=== PATIENT | female | born 1990 | race Caucasian/White ===

== ENCOUNTER 2018-08-18 16:29 | Inpatient (IN) ==
[2018-08-18] MEDS ORDERED: ACETAMINOPHEN 1,000 MG/100 ML VIAL IV STA (17:29)
[2018-08-18] MEDS ORDERED: KETOROLAC TROMETHAMINE 15 MG/ML VIAL IV STA (17:29)
[2018-08-18] MEDS ORDERED: SODIUM CHLORIDE 0.9% 1000ML 2,000 ML IV ONE (17:29)
[2018-08-18] MEDS ORDERED: ONDANSETRON INJ 2 MG/ML 2 ML VIAL IV STA (17:30)
[2018-08-18 19:31] LABS: Pregnancy Test, Serum Negative (Negative)
[2018-08-18 19:39] LABS: Albumin Globulin Ratio 0.8 (0.9-2); Albumin Level 2.8 gm/dl (3.4-5.0); BUN Creatinine Ratio 6.9 (10-20); Bilirubin Direct 0.5 mg/dl (0-0.2); Bilirubin,Total 1.1 mg/dl (0.2-1); Calcium 7.4 mg/dl (8.5-10.1); Creatinine Clr Calc Pharmacy 113.4 ml/min; Est GFR (African American) 123.7; Est GFR (Non-African American) 106.8; Globulin 3.3 gm/dl (2.5-4.0); Potassium 2.5 mmol/L (3.5-5.1); Total Protein 6.1 gm/dl (6.4-8.2)
[2018-08-18] MEDS ORDERED: POTASSIUM CHLORIDE / WTR 10 MEQ/100 ML PLCT IV STA (19:41)
[2018-08-18 20:26] LABS: Basophils # (auto) 0.01 K/uL (0-0.2); Basophils % (auto) 0.1 %; Hematocrit (blood only) 35.7 % (37-47); Hemoglobin 12.1 g/dL (12.0-16.0); Immature Granulocytes # (auto) 0.02 K/uL (0.00-0.02); Immature Granulocytes % (auto) 0.2 %; Lymphocytes # (auto) 0.89 K/uL (1.2-3.4); Lymphocytes % (auto) 9.6 %; Mean Corpuscular Hgb Conc 33.9 g/dL (32-36); Mean Corpuscular Volume 85.6 fL (80-100); Mean Platelet Volume 11.4 fL (7.4-10.4); Monocytes % (auto) 4.3 %; Neutrophils # (auto) 7.98 K/uL (1.4-6.5); Neutrophils % (auto) 85.8 %; Platelet Count 98 K/uL (130-400); Platelet Estimate Decreased (Normal); RDW Coefficient of Variation 13.3 % (11.5-14.5); RDW Standard Deviation 41.6 fL (36.4-46.3); Red Blood Count 4.17 M/uL (4.2-5.4)
[2018-08-18] MEDS ORDERED: IOVERSOL 100ml IV PRN (20:27)
--- NOTE | 2018-08-18 20:39 | CT Scan Report ---
CT abd pelvis IV con only CLINICAL HISTORY: 28 years-old Female presenting with rlq pain, fevers, nausea. TECHNIQUE: Multidetector CT of the abdomen and pelvis was performed after the administration of intra venous contrast. IV contrast: 94 mL of Optiray 320. One or more dose lowering techniques were used co nsistent with the principles of ALARA (as low as reasonably achievable), including automatic exposure control, mA or kV adjustment to individual patient size, and/or use of iterative reconstruction. COMPARISON: None. CT DOSE (mGy.cm): The estimated cumulative dose is 465.68 mGy.cm. FINDINGS: Glaze Carrier topogram: Cholecystectomy clips. Lung bases: Normal heart size. No pericardial or pleural effusion. No focal infiltrate or nodule at t he lung bases. Liver: Normal morphology. No liver lesion. Patent hepatic vasculature. Biliary: Mild biliary ductal prominence likely a reservoir effect in the post cholecystectomy state. Gallbladder surgically absent. Pancreas: Normal. Spleen: Top normal in size measuring 13 cm in maximal sagittal dimension. Adrenal glands: Normal. Kidneys and ureters: Mild delayed perfusion of the right kidney. A limited region of hypoenhancement is noted along the anterior aspect of the interpolar region. Significant right urothelial thickening. No hydronephrosis. Extensive right periureteral fat stranding. No nephrolithiasis or ureteral calcul us. Moderate asymmetric right perinephric fat infiltration as well as trace fluid in the right anteri or pararenal space. No renal abscess. Bladder: Circumferential bladder wall thickening. Focus of gas in the urinary bladder may relate to r ecent catheterization. Pelvic organs: Uterus and ovaries normal. A tampon is in place within the vagina. Bowel: Normal appendix. No bowel obstruction. Peritoneal cavity: No free fluid or intraperitoneal gas. Trace retroperitoneal fluid as mentioned. Lymph nodes: No enlarged lymph nodes in the abdomen or pelvis. Vasculature: Aorta and IVC patent and normal in caliber. Abdominal wall: Small fat-containing umbilical hernia. Musculoskeletal: Normal. IMPRESSION: 1. Cystitis with upper urinary tract involvement of infection and suspected developing lobar nephron ia/focal polynephritis. No hydronephrosis. No renal abscess. 2. No nephrolithiasis or evidence of a recently passed calculus. 3. Borderline splenomegaly. Electronically signed by: Mustapha Mann M.D. 08/18/2018 8:38 PM
[2018-08-18] MEDS ORDERED: cefTRIAXone SODIUM 2,000 MG in DEXTROSE 5% 50 ML IV STA (20:42)
[2018-08-18] MEDS ORDERED: SODIUM CHLORIDE 0.9% 1000ML 1,000 ML IV ONE (20:42)
[2018-08-18] MEDS ORDERED: MAGNESIUM SULFATE / D5W 1 GM/100 ML BAG IV ONE ×2 (20:44→23:37)
[2018-08-18] MEDS ORDERED: POTASSIUM CHLORIDE PWD 20 MEQ PACK PO STA (20:55)
--- NOTE | 2018-08-18 21:01 | Emergency Department Note ---
Entered by Lilia Ayala acting as a scribe for Alton Feliz MD History of Present Illness General Chief complaint: Illness Stated complaint: DIZZY, HEADACHE, FEVER, PAIN ON RT SIDE Time Seen by Provider: 08/18/18 17:06 Source: patient Mode of arrival: ambulatory Limitations: no limitations History of Present Illness Onset (ago): day(s) 3 Radiation: non-radiation Pain Consistency: + constant Maximum Pain Intensity: 8 Relieved By: + none Exacerbated By: + none Associated symptoms: + nausea/vomiting and + other (-diarrhea, +right sided flan k pain) Treatments prior to arrival: none The patient is a 28 year old female who presents to the ED with complaints of a persistent illness for the past few days. She states she feels weak, dizzy, lightheaded, and nauseous. She has vomited a few times and states she has not eaten in 3 to 4 days. She has experienced a headache as well as pain in her right flank. She states she has a history of urinary infections, and last had an infection about 1 month ago. She denies any diarrhea or urinary symptoms. She is a 1 pack a day smoker. She denies any alcohol use. She still has her appendix but has had her gallbladder removed. 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 Other Information That Helps Us Care for You: No Feels Safe at Home: Yes Safety Concerns: Feels Safe At This Time Smoking Status: Current every day smoker Tobacco Type: cigarettes Hx Alcohol Use: No Hx Substance Use: No Review of Systems See HPI for pertinent positives & negatives. and A total of 10 systems reviewed and were otherwise negative Physical Exam Vital Signs Vital Signs - 24 hr 08/18/18 16:39 08/18/18 18:06 08/18/18 18:46 Temperature 37.6 C H Temperature Source Oral Sepsis Recent Fever Within 48 Hours Yes Sepsis New/Unexplained Change in Mental Status No Sepsis Action Taken by Nursing No Action Required Pulse Rate 138 H 114 H Pulse Rate [Apical] 114 H 114 H Pulse Rate from SpO2 Sensor Pulse Rhythm Regular Pulse Rhythm [Apical] Regular Regular Pulse Strength [Apical] Normal Normal Respiratory Rate 18 18 18 Respiratory Effort / Characteristics Non-Labored Non-Labored Spontaneous Non-Labored Spontaneous Respiratory Depth Normal Normal Normal Respiratory Pattern Regular Regular Blood Pressure 122/81 Blood Pressure [Left Arm] 108/79 131/58 L Blood Pressure Mean 94 Blood Pressure Mean [Left Arm] 88 82 Blood Pressure Position [Left Arm] Lying Lying Pulse Oximetry 98 100 97 Oxygen Delivery Method Room Air Room Air Room Air 08/18/18 20:35 08/18/18 20:36 08/18/18 20:47 Temperature Temperature Source Sepsis Recent Fever Within 48 Hours Sepsis New/Unexplained Change in Mental Status Sepsis Action Taken by Nursing Pulse Rate 94 H 99 H 99 H Pulse Rate [Apical] Pulse Rate from SpO2 Sensor 99 H 101 H 99 H Pulse Rhythm Pulse Rhythm [Apical] Pulse Strength [Apical] Respiratory Rate 19 24 27 H Respiratory Effort / Characteristics Respiratory Depth Respiratory Pattern Blood Pressure 87/79 L 77/69 L 109/65 Blood Pressure [Left Arm] Blood Pressure Mean 81 71 79 Blood Pressure Mean [Left Arm] Blood Pressure Position [Left Arm] Pulse Oximetry 100 100 99 Oxygen Delivery Method Room Air Room Air Room Air 08/18/18 21:00 08/18/18 21:30 Temperature Temperature Source Sepsis Recent Fever Within 48 Hours Sepsis New/Unexplained Change in Mental Status Sepsis Action Taken by Nursing Pulse Rate 93 H 93 H Pulse Rate [Apical] Pulse Rate from SpO2 Sensor 95 H 97 H Pulse Rhythm Pulse Rhythm [Apical] Pulse Strength [Apical] Respiratory Rate 20 21 Respiratory Effort / Characteristics Respiratory Depth Respiratory Pattern Blood Pressure 115/75 110/71 Blood Pressure [Left Arm] Blood Pressure Mean 88 84 Blood Pressure Mean [Left Arm] Blood Pressure Position [Left Arm] Pulse Oximetry 100 100 Oxygen Delivery Method Room Air Room Air GENERAL: Awake, alert, fatigued-appearing, and appears uncomfortable HENT: Normocephalic, atraumatic. Oropharynx with dry mucous membranes and otherwise unremarkable. EYES: Normal conjunctiva. Sclera non-icteric. NECK: Supple. No nuchal rigidity. FROM. No JVD. RESPIRATORY: CTAB. CARDIAC: Tachycardic rate, normal rhythm. Extremities warm and well perfused. Pulses equal. ABDOMEN: Soft, non-distended. Mild RLQ abdominal tenderness to palpation and right flank tenderness. No rebound or guarding. No masses. RECTAL: Deferred. MUSCULOSKELETAL: Chest examination reveals no tenderness. The back is symmetrical on inspection without obvious abnormality. There is no CVA tenderness to palpation. No joint edema. LOWER EXTREMITIES: Calves are equal size bilaterally and non-tender. No edema. No discoloration. NEURO: Normal sensorium. No sensory or motor deficits noted. SKIN: No rash or jaundice noted. Course 1728: The patient was evaluated in room C2 and a complete history and physical were performed. Administered Medications Lactated Ringer's (Lr) 1,000 mls @ 80 mls/hr IV .[id number] MYLES Stop: 09/17/18 23:36 Last Admin: 08/19/18 00:16 Dose: 80 mls/hr Documented by: [id number] Potassium Chloride (K Carroll / Wtr) 10 meq in 100 mls @ 100 mls/hr IV Q1H MYLES Stop: 08/19/18 03:36 Last Infusion: 08/19/18 00:32 Dose: 67 mls/hr Documented by: [id number] Admin: 08/19/18 00:18 Dose: 75 mls/hr Documented by: [id number] Ioversol (Optiray 320 100ml) 94 ml IV ONCE PRN PRN Reason: Interaction Checking Stop: 08/22/18 20:26 Last Admin: 08/18/18 20:28 Dose: 94 ml Documented by: [id number] Morphine Sulfate (Morphine Sulfate) 2 mg IV Q4H PRN PRN Reason: Severe Pain Stop: 09/01/18 22:43 Last Admin: 08/18/18 22:54 Dose: 2 mg Documented by: [id number] Discontinued Medications Acetaminophen (Ofirmev) 1,000 mg in 100 mls @ 400 mls/hr IV NOW STA Stop: 08/18/18 17:43 Last Infusion: 08/18/18 18:13 Dose: 0 mls/hr Documented by: [id number] Admin: 08/18/18 17:56 Dose: 400 mls/hr Documented by: [id number] Sodium Chloride (Nss 1000ml) 2,000 mls @ 999 mls/hr IV .Q2H1M ONE Stop: 08/18/18 19:29 Last Infusion: 08/18/18 20:46 Dose: 0 mls/hr Documented by: [id number] Admin: 08/18/18 17:55 Dose: 999 mls/hr Documented by: [id number] Potassium Chloride (K Carroll / Wtr) 10 meq in 100 mls @ 100 mls/hr IV NOW STA Stop: 08/18/18 20:40 Last Infusion: 08/18/18 21:42 Dose: 0 mls/hr Documented by: [id number] Admin: 08/18/18 20:14 Dose: 100 mls/hr Documented by: [id number] Ceftriaxone Sodium 2,000 mg/ (Dextrose) 70 mls @ 100 mls/hr IV NOW STA Stop: 08/18/18 21:23 Last Infusion: 08/18/18 23:04 Dose: 0 mls/hr Documented by: [id number] Admin: 08/18/18 22:03 Dose: 100 mls/hr Documented by: [id number] Sodium Chloride (Nss 1000ml) 1,000 mls @ 999 mls/hr IV .Q1H1M ONE Stop: 08/18/18 21:42 Last Infusion: 08/18/18 22:30 Dose: 0 mls/hr Documented by: [id number] Admin: 08/18/18 21:22 Dose: 999 mls/hr Documented by: [id number] Magnesium Sulfate/Dextrose (Magnesium Sulfate / D5w) 1 gm in 100 mls @ 100 mls/hr IV ONE ONE Stop: 08/18/18 21:43 Last Infusion: 08/18/18 22:03 Dose: 0 mls/hr Documented by: [id number] Admin: 08/18/18 20:59 Dose: 100 mls/hr Documented by: [id number] Lactated Ringer's (Lr) 1,000 mls @ 999 mls/hr IV .Q1H1M ONE Stop: 08/18/18 23:38 Last Infusion: 08/19/18 00:06 Dose: 0 mls/hr Documented by: [id number] Admin: 08/18/18 23:04 Dose: 999 mls/hr Documented by: [id number] Magnesium Sulfate/Dextrose (Magnesium Sulfate / D5w) 1 gm in 100 mls @ 100 m ls/hr IV ONE ONE Stop: 08/19/18 00:36 Last Admin: 08/19/18 00:23 Dose: 100 mls/hr Documented by: [id number] Ketorolac Tromethamine (Toradol) 15 mg IV NOW STA Stop: 08/18/18 17:30 Last Admin: 08/18/18 17:56 Dose: 15 mg Documented by: [id number] Ondansetron HCl (Zofran) 4 mg IV NOW STA Stop: 08/18/18 17:31 Last Admin: 08/18/18 17:56 Dose: 4 mg Documented by: [id number] Potassium Chloride (Klor-Con Pwd) 40 meq PO NOW STA Stop: 08/18/18 20:56 Last Admin: 08/18/18 21:21 Dose: 40 meq Documented by: [id number] Medical Decision Making Differential Diagnosis Differential diagnoses includes but is not limited to gastritis, peptic ulcer disease, GERD, gallbladder disease, pancreatitis, small bowel obstruction, acute coronary syndrome, pericarditis, ischemic bowel, irritable bowel disease, irritable bowel syndrome, appendicitis, diverticulitis, malignancy, hernia, urinary tract infection, torsion, /ectopic , perforation, trauma, infectious. Medical Records Attestation: I reviewed the patient's medical records. Home Medications Current Medication List: was personally reviewed by me Laboratory Data Attestation: I reviewed the patient's lab results. Result diagrams: 08/18/18 18:54 08/18/18 18:54 Lab Results 08/18/18 08/18/18 08/18/18 Range/Units 18:54 18:54 18:54 WBC 9.30 (4.8-10.8) K/uL RBC 4.17 L (4.2-5.4) M/uL Hgb 12.1 (12.0-16.0) g/dL Hct 35.7 L (37-47) % MCV 85.6 (80-100) fL MCH 29.0 (25-34) pg MCHC 33.9 (32-36) g/dL RDW Std Deviation 41.6 (36.4-46.3) fL RDW Coeff of Jose 13.3 (11.5-14.5) % Plt Count 98 L (130-400) K/uL MPV 11.4 H (7.4-10.4) fL Immature Gran % (Auto) 0.2 % Neut % (Auto) 85.8 % Lymph % (Auto) 9.6 % [place] % (Auto) 4.3 % Eos % (Auto) 0.0 % Baso % (Auto) 0.1 % Immature Gran # (Auto) 0.02 (0.00-0.02) K/uL Neut # (Auto) 7.98 H (1.4-6.5) K/uL Lymph # (Auto) 0.89 L (1.2-3.4) K/uL [place] # (Auto) 0.40 (0.11-0.59) K/uL Eos # (Auto) 0.00 (0-0.5) K/uL Baso # (Auto) 0.01 (0-0.2) K/uL Platelet Estimate Decreased L (Normal) Sodium 136 (136-145) mmol/L Potassium 2.5 L* (3.5-5.1) mmol/L Chloride 103 (98-107) mmol/L Carbon Dioxide 22 (21-32) mmol/L Anion Gap 9.0 (3-11) BUN 5 L (7-18) mg/dl Creatinine 0.76 (0.6-1.2) mg/dl Est Cr Clr Drug Dosing 113.4 ml/min Est GFR ( Amer) 123.7 Est GFR (Non-Af Amer) 106.8 BUN/Creatinine Ratio 6.9 L (10-20) Glucose 111 H (70-99) mg/dl Calcium 7.4 L (8.5-10.1) mg/dl Phosphorus (2.5-4.9) mg/dl Magnesium (1.8-2.4) mg/dl Total Bilirubin 1.1 H (0.2-1) mg/dl Direct Bilirubin 0.5 H (0-0.2) mg/dl AST 9 L (15-37) U/L ALT 15 (12-78) U/L Alkaline Phosphatase 76 (45-117) U/L Total Protein 6.1 L (6.4-8.2) gm/dl Albumin 2.8 L (3.4-5.0) gm/dl Globulin 3.3 (2.5-4.0) gm/dl Albumin/Globulin Ratio 0.8 L (0.9-2) Lipase 24 L (73-393) U/L HCG, Qual Negative (Negative) 08/18/18 Range/Units 18:54 WBC (4.8-10.8) K/uL RBC (4.2-5.4) M/uL Hgb (12.0-16.0) g/dL Hct (37-47) % MCV (80-100) fL MCH (25-34) pg MCHC (32-36) g/dL RDW Std Deviation (36.4-46.3) fL RDW Coeff of Jose (11.5-14.5) % Plt Count (130-400) K/uL MPV (7.4-10.4) fL Immature Gran % (Auto) % Neut % (Auto) % Lymph % (Auto) % [place] % (Auto) % Eos % (Auto) % Baso % (Auto) % Immature Gran # (Auto) (0.00-0.02) K/uL Neut # (Auto) (1.4-6.5) K/uL Lymph # (Auto) (1.2-3.4) K/uL [place] # (Auto) (0.11-0.59) K/uL Eos # (Auto) (0-0.5) K/uL Baso # (Auto) (0-0.2) K/uL Platelet Estimate (Normal) Sodium (136-145) mmol/L Potassium (3.5-5.1) mmol/L Chloride (98-107) mmol/L Carbon Dioxide (21-32) mmol/L Anion Gap (3-11) BUN (7-18) mg/dl Creatinine (0.6-1.2) mg/dl Est Cr Clr Drug Dosing ml/min Est GFR ( Amer) Est GFR (Non-Af Amer) BUN/Creatinine Ratio (10-20) Glucose (70-99) mg/dl Calcium (8.5-10.1) mg/dl Phosphorus 2.3 L (2.5-4.9) mg/dl Magnesium 1.6 L (1.8-2.4) mg/dl Total Bilirubin (0.2-1) mg/dl Direct Bilirubin (0-0.2) mg/dl AST (15-37) U/L ALT (12-78) U/L Alkaline Phosphatase (45-117) U/L Total Protein (6.4-8.2) gm/dl Albumin (3.4-5.0) gm/dl Globulin (2.5-4.0) gm/dl Albumin/Globulin Ratio (0.9-2) Lipase (73-393) U/L HCG, Qual (Negative) Imaging Data Attestation: I personally reviewed and interpreted this imaging study as follows: Radiologist's Impression: CT abd pelvis IV con only CLINICAL HISTORY: 28 years-old Female presenting with rlq pain, fevers, nausea. TECHNIQUE: Multidetector CT of the abdomen and pelvis was performed after the administration of intravenous contrast. IV contrast: 94 mL of Optiray 320. One or more dose lowering techniques were used consistent with the principles of ALARA (as low as reasonably achievable), including automatic exposure control, mA or kV adjustment to individual patient size, and/or use of iterative reconstruction. COMPARISON: None. CT DOSE (mGy.cm): The estimated cumulative dose is 465.68 mGy.cm. FINDINGS: Target Man topogram: Cholecystectomy clips. Lung bases: Normal heart size. No pericardial or pleural effusion. No focal infiltrate or nodule at the lung bases. Liver: Normal morphology. No liver lesion. Patent hepatic vasculature. Biliary: Mild biliary ductal prominence likely a reservoir effect in the post cholecystectomy state. Gallbladder surgically absent. Pancreas: Normal. Spleen: Top normal in size measuring 13 cm in maximal sagittal dimension. Adrenal glands: Normal. Kidneys and ureters: Mild delayed perfusion of the right kidney. A limited region of hypoenhancement is noted along the anterior aspect of the interpolar region. Significant right urothelial thickening. No hydronephrosis. Extensive right periureteral fat stranding. No nephrolithiasis or ureteral calculus. Moderate asymmetric right perinephric fat infiltration as well as trace fluid in the right anterior pararenal space. No renal abscess. Bladder: Circumferential bladder wall thickening. Focus of gas in the urinary bladder may relate to recent catheterization. Pelvic organs: Uterus and ovaries normal. A tampon is in place within the vagina. Bowel: Normal appendix. No bowel obstruction. Peritoneal cavity: No free fluid or intraperitoneal gas. Trace retroperitoneal fluid as mentioned. Lymph nodes: No enlarged lymph nodes in the abdomen or pelvis. Vasculature: Aorta and IVC patent and normal in caliber. Abdominal wall: Small fat-containing umbilical hernia. Musculoskeletal: Normal. IMPRESSION: 1. Cystitis with upper urinary tract involvement of infection and suspected developing lobar nephronia/focal polynephritis. No hydronephrosis. No renal abscess. 2. No nephrolithiasis or evidence of a recently passed calculus. 3. Borderline splenomegaly. Electronically signed by: Mustapha Mann M.D. 08/18/2018 8:38 PM Dictated: 08/18/182030 Transcribed: 08/18/182030 MDM Narrative The patient is a pleasant 28-year-old woman with a past medical history of recurrent urinary tract infections who presents emergency department with generalized weakness, body aches and feverishness over the past 48 hours with associated right flank and right lower abdominal pain per hpi. On arrival patient is fatigued appearing no acute distress, temperature of 37.6 with heart rate in the 130s but vital signs otherwise stable. Patient appears clinically dry. She has mild right flank and right lower quadrant tenderness without guarding or rebound. WBC and hemoglobin within normal limits. Platelets 98 without prior for comparison. Potassium 2.5 with repletion initiated. Mg 1.6 with repletion initiated. Chemistry without acidosis. LFTs unremarkable. CT abdomen pelvis demonstrates findings consistent with pyelonephritis without abscess. Of note, patient's blood pressure did read as low 77/69 but when reevaluated cuff was noted to be loose and when reapplied blood pressure 100s/80s. Findings were reviewed with the patient and she admitted to having a habit of not taking medications that are prescribed for her and in particular her antibiotics which certainly could have put her at risk for development of her pyelonephritis diagnosed today. Patient ordered for CTX. Case d/w Dr. Veloz, admitting resident working with Dr. Carter, [facility] hospitalist, who will evaluate the patient for admission. Impression & Plan Pyelonephritis of right kidney, Hypokalemia, Hypomagnesemia Discharge Plan Visit Data *Final* Discharge Date/Time: 08/18/18 23:12 Chief Complaint: Illness Stated Complaint: DIZZY, HEADACHE, FEVER, PAIN ON RT SIDE ED Provider: Alton Feliz Discharge Problem: Pyelonephritis of right kidney, Hypokalemia, Hypomagnesemia Patient Disposition: Admitted As Inpatient Discharge Instructions Interventions: ED Discharge Assessment Last Done: 08/18/18 23:12 The scribe's documentation has been prepared under my direction and personally reviewed by me in its entirety. I confirm that the note above accurately reflects all work, treatment, procedures, and medical decision making performed by me.
[2018-08-18 22:05] LABS: Magnesium 1.6 mg/dl (1.8-2.4); Phosphorus 2.3 mg/dl (2.5-4.9)
--- NOTE | 2018-08-18 22:11 | History & Physical Report ---
Date of Service August 18, 2018 Assessment & Plan (1) Nausea and vomitin-year-old female was admitted for nausea, vomiting, hypokalemia, and pyelonephritis. Nausea and vomiting, right pyelonephritis: N/V x 3 days, flank pain x ~48 hours. Tm 101 at home. History of UTI and noncompliance with taking antibiotics. - In ED, temp 37.6. Initially tachycardic, improved with fluids. Question of transient hypotension versus BP cuff misplacement. Normal room SpO2. WBC 9. hCG negative. CT a/p with IV contrast with concerns for developing right pyelonephritis without hydronephrosis or abscess. No nephrolithiasis seen. - In ED, treated with normal saline IVF, Tylenol, Toradol, Zofran, and started on ceftriaxone 2 gm IV. UA and culture ordered, though does not seem to have been obtained prior to antibiotic administration. - Will continue with ceftriaxone 1 gram IV every 24 hours. Tylenol and Zofran for pain and nausea respectively. Keep on IVF for now. Hypokalemia, Hypomagnesemia: Admit K 2.5. EKG notes NSR 82 without U waves. Admit Mg 1.6. - In ED, given potassium 60 mEq and magnesium 1 gram in ED. - Will give additional doses of potassium and magnesium IV. Recheck in a.m. Thrombocytopenia: Admit platelets 98. No comparison available. CT a/p mentions borderline splenomegaly. Patient denies left upper quadrant/flank pain. No reports of recent easy bleeding. - Recheck CBC in a.m. Hypoalbuminemia: Admit albumin 2.8. Calcium corrects to 8.5. Ongoing medical issues: Patient denies ongoing issues with exception of recurrent UTIs. Code status: Full code. Diet: Full liquid diet, advance as tolerated. DVT prophy: Lovenox. PT/OT: Deferred. Disbo: Admit to [facility] with telemetry for observation. (2) Pyelonephritis of right kidney: (3) Hypokalemia: (4) Hypomagnesemia: (5) Thrombocytopenia: (6) Hypoalbuminemia: History of Present Illness Primary Care Provider: NO PCP 28-year-old female presents to the emergency department nausea vomiting for 3 to 4 days as well as right flank pain for about 2 days. Patient says she has a history of recurrent UTIs "about one per month. However, patient says that she will often fill the antibiotics but not complete intercourse due to either not remembering her or being too busy with her 3 kids. Minimal food intake during these past few days but has tried to stay dehydrated. Denies diarrhea. Says joan garcia was 101 earlier today but took some Tylenol. Denies bloody emesis. Says she presently has right flank pain without radiation. No other acute patient concerns. - Past medical history includes recurrent UTIs, iron deficiency anemia in . - Past surgical history includes cholecystectomy, x3, tubal ligation. - Social history includes smoking 1 pack/day for 15 years. Denies alcohol and illicit drug use. Lives with boyfriend and three children with family nearby. 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 Other Information That Helps Us Care for You: No Feels Safe at Home: Yes Safety Concerns: Feels Safe At This Time Smoking Status: Current every day smoker Tobacco Type: cigarettes Hx Alcohol Use: No Hx Substance Use: No Review of Systems Review of Systems: Constitutional: Positive fevers. Denies focal weakness. Eyes: Denies any visual loss or diplopia ENT: Denies any ear/nose/throat pain or difficulty speaking or swallowing Respiratory: Denies any dyspnea, cough, hemoptysis Cardiovascular: Denies any chest pain or feeling of edema Gastrointestinal/renal: Positive right flank pain. Positive nausea and vomiting. Denies diarrhea. Musculoskeletal: Denies any acute extremity pains, myalgias, or focal weakness Skin: Denies any known acute rashes or lesions Neuro: Positive generalized headache. Denies acute focal weakness or numbness, or difficulties with speech or swallow. Physical Exam Physical Exam: GENERAL: Awake, alert, appears a little uncomfortable due to right flank pain, but does not appear in acute distress. HENT: Normocephalic, atraumatic. Oropharynx mildly dry. EYES: Normal conjunctiva. Sclera non-icteric. NECK: Inspection normal. Supple and full ROM. No nuchal rigidity. CARDIAC: +S1S2 RRR, no murmurs. RESPIRATORY: Clear to auscultation. No wheezes or rales. Normal respiratory effort. GI: +BS, soft, non-distended. No tenderness to palpation anteriorly. No rebound or guarding. Positive right flank CVA tenderness to palpation. EXTREMITIES: No pedal edema or calf tenderness. Moving all extremities naturally and easily. NEURO: No gross neuro deficits. Results & Data Vital Signs (Past 12 Hours) Vital Signs Temp Pulse Pulse Resp BP BP Pulse Ox 08/18/18 21:00 93 H 20 115/75 100 08/18/18 20:47 99 H 27 H 109/65 99 08/18/18 20:36 99 H 24 77/69 L 100 08/18/18 20:35 94 H 19 87/79 L 100 08/18/18 18:46 114 H 18 131/58 L 97 08/18/18 18:06 114 H 114 H 18 108/79 100 08/18/18 16:39 37.6 C H 138 H 18 122/81 98 Laboratory Results 08/18/18 08/18/18 08/18/18 Range/Units 18:54 18:54 18:54 WBC (4.8-10.8) K/uL RBC (4.2-5.4) M/uL Hgb (12.0-16.0) g/dL Hct (37-47) % MCV (80-100) fL MCH (25-34) pg MCHC (32-36) g/dL RDW Std Deviation (36.4-46.3) fL RDW Coeff of Jose (11.5-14.5) % Plt Count (130-400) K/uL MPV (7.4-10.4) fL Immature Gran % (Auto) % Neut % (Auto) % Lymph % (Auto) % Taney % (Auto) % Eos % (Auto) % Baso % (Auto) % Immature Gran # (Auto) (0.00-0.02) K/uL Neut # (Auto) (1.4-6.5) K/uL Lymph # (Auto) (1.2-3.4) K/uL Taney # (Auto) (0.11-0.59) K/uL Eos # (Auto) (0-0.5) K/uL Baso # (Auto) (0-0.2) K/uL Platelet Estimate (Normal) Sodium 136 (136-145) mmol/L Potassium 2.5 L* (3.5-5.1) mmol/L Chloride 103 (98-107) mmol/L Carbon Dioxide 22 (21-32) mmol/L Anion Gap 9.0 (3-11) BUN 5 L (7-18) mg/dl Creatinine 0.76 (0.6-1.2) mg/dl Est Cr Clr Drug Dosing 113.4 ml/min Est GFR ( Amer) 123.7 Est GFR (Non-Af Amer) 106.8 BUN/Creatinine Ratio 6.9 L (10-20) Glucose 111 H (70-99) mg/dl Calcium 7.4 L (8.5-10.1) mg/dl Phosphorus 2.3 L (2.5-4.9) mg/dl Magnesium 1.6 L (1.8-2.4) mg/dl Total Bilirubin 1.1 H (0.2-1) mg/dl Direct Bilirubin 0.5 H (0-0.2) mg/dl AST 9 L (15-37) U/L ALT 15 (12-78) U/L Alkaline Phosphatase 76 (45-117) U/L Total Protein 6.1 L (6.4-8.2) gm/dl Albumin 2.8 L (3.4-5.0) gm/dl Globulin 3.3 (2.5-4.0) gm/dl Albumin/Globulin Ratio 0.8 L (0.9-2) Lipase 24 L (73-393) U/L HCG, Qual Negative (Negative) 08/18/18 Range/Units 18:54 WBC 9.30 (4.8-10.8) K/uL RBC 4.17 L (4.2-5.4) M/uL Hgb 12.1 (12.0-16.0) g/dL Hct 35.7 L (37-47) % MCV 85.6 (80-100) fL MCH 29.0 (25-34) pg MCHC 33.9 (32-36) g/dL RDW Std Deviation 41.6 (36.4-46.3) fL RDW Coeff of Jose 13.3 (11.5-14.5) % Plt Count 98 L (130-400) K/uL MPV 11.4 H (7.4-10.4) fL Immature Gran % (Auto) 0.2 % Neut % (Auto) 85.8 % Lymph % (Auto) 9.6 % Taney % (Auto) 4.3 % Eos % (Auto) 0.0 % Baso % (Auto) 0.1 % Immature Gran # (Auto) 0.02 (0.00-0.02) K/uL Neut # (Auto) 7.98 H (1.4-6.5) K/uL Lymph # (Auto) 0.89 L (1.2-3.4) K/uL Taney # (Auto) 0.40 (0.11-0.59) K/uL Eos # (Auto) 0.00 (0-0.5) K/uL Baso # (Auto) 0.01 (0-0.2) K/uL Platelet Estimate Decreased L (Normal) Sodium (136-145) mmol/L Potassium (3.5-5.1) mmol/L Chloride (98-107) mmol/L Carbon Dioxide (21-32) mmol/L Anion Gap (3-11) BUN (7-18) mg/dl Creatinine (0.6-1.2) mg/dl Est Cr Clr Drug Dosing ml/min Est GFR ( Amer) Est GFR (Non-Af Amer) BUN/Creatinine Ratio (10-20) Glucose (70-99) mg/dl Calcium (8.5-10.1) mg/dl Phosphorus (2.5-4.9) mg/dl Magnesium (1.8-2.4) mg/dl Total Bilirubin (0.2-1) mg/dl Direct Bilirubin (0-0.2) mg/dl AST (15-37) U/L ALT (12-78) U/L Alkaline Phosphatase (45-117) U/L Total Protein (6.4-8.2) gm/dl Albumin (3.4-5.0) gm/dl Globulin (2.5-4.0) gm/dl Albumin/Globulin Ratio (0.9-2) Lipase (73-393) U/L HCG, Qual (Negative) Medications Administered Ioversol (Optiray 320 100ml) 94 ml IV ONCE PRN PRN Reason: Interaction Checking Stop: 08/22/18 20:26 Last Admin: 08/18/18 20:28 Dose: 94 ml Documented by: [id number] Discontinued Medications Acetaminophen (Ofirmev) 1,000 mg in 100 mls @ 400 mls/hr IV NOW STA Stop: 08/18/18 17:43 Last Infusion: 08/18/18 18:13 Dose: 0 mls/hr Documented by: [id number] Admin: 08/18/18 17:56 Dose: 400 mls/hr Documented by: [id number] Sodium Chloride (Nss 1000ml) 2,000 mls @ 999 mls/hr IV .Q2H1M ONE Stop: 08/18/18 19:29 Last Infusion: 08/18/18 20:46 Dose: 0 mls/hr Documented by: [id number] Admin: 08/18/18 17:55 Dose: 999 mls/hr Documented by: [id number] Potassium Chloride (K Carroll / Wtr) 10 meq in 100 mls @ 100 mls/hr IV NOW STA Stop: 08/18/18 20:40 Last Infusion: 08/18/18 21:42 Dose: 0 mls/hr Documented by: [id number] Admin: 08/18/18 20:14 Dose: 100 mls/hr Documented by: [id number] Ceftriaxone Sodium 2,000 mg/ (Dextrose) 70 mls @ 100 mls/hr IV NOW STA Stop: 08/18/18 21:23 Last Admin: 08/18/18 22:03 Dose: 100 mls/hr Documented by: [id number] Sodium Chloride (Nss 1000ml) 1,000 mls @ 999 mls/hr IV .Q1H1M ONE Stop: 08/18/18 21:42 Last Admin: 08/18/18 21:22 Dose: 999 mls/hr Documented by: [id number] Magnesium Sulfate/Dextrose (Magnesium Sulfate / D5w) 1 gm in 100 mls @ 100 mls/hr IV ONE ONE Stop: 08/18/18 21:43 Last Infusion: 08/18/18 22:03 Dose: 0 mls/hr Documented by: [id number] Admin: 08/18/18 20:59 Dose: 100 mls/hr Documented by: [id number] Ketorolac Tromethamine (Toradol) 15 mg IV NOW STA Stop: 08/18/18 17:30 Last Admin: 08/18/18 17:56 Dose: 15 mg Documented by: [id number] Ondansetron HCl (Zofran) 4 mg IV NOW STA Stop: 08/18/18 17:31 Last Admin: 08/18/18 17:56 Dose: 4 mg Documented by: [id number] Potassium Chloride (Klor-Con Pwd) 40 meq PO NOW STA Stop: 08/18/18 20:56 Last Admin: 08/18/18 21:21 Dose: 40 meq Documented by: [id number] Code Status & VTE Plan Code Status Full code VTE Prophylaxis Plan VTE Prophylaxis will be ordered: Yes Supervising Physician Co-Signing Physician Notes Attending addendum: I have physically seen this patient, have supervised the medical residents activities, and agree with the H&P unless as otherwise noted. Assessment and Plan: Lobar pyelonephritis/cystitis/recurrent UTI/medical noncompliance- Admit to medical surgical floor. Follow urine culture and sensitivities. Ceftriaxone 1 g IV daily. Acetaminophen 1 g IV every 8 hours PRN mild pain or temperature. Morphine sulfate 2 mg IV every 4 hours as needed severe pain. IV fluids. Zofran 4 mg IV every 6 hours as needed Replace potassium of 2.5 orally with 60 mEq p.o. Klor-Con now and then 60 mEq upon transfer to floor. Received mag sulfate 1 g IV in the ED. Remainder of orders and notations as noted. PG Care Time/CCT Total # of Minutes Spent Total Time Spent with Patient: Total time spent is greater than 50% in coordination of care (as documented) at patient's floor/unit and/or counseling patient: Resident Activity Tracking Resident Involvement: Resident Care Provided Care Provided: Adult Hospital Medicine
[2018-08-18] MEDS ORDERED: LACTATED RINGER'S 1,000 ML IV ONE (22:38)
[2018-08-18] MEDS: MoRPHine SULFATE 2 MG/ML CARP IV PRN (22:54)
[2018-08-18] MEDS ORDERED: cefTRIAXone SODIUM 1,000 MG in DEXTROSE 5% 50 ML IV SCH (23:37)
[2018-08-18] MEDS ORDERED: ACETAMINOPHEN 65 ML IV PRN (23:37)
[2018-08-18] MEDS ORDERED: ONDANSETRON INJ 2 MG/ML 2 ML VIAL IV PRN (23:37)
[2018-08-19] MEDS: LACTATED RINGER'S 1,000 ML IV SCH ×2 (00:16→12:45)
[2018-08-19] MEDS: POTASSIUM CHLORIDE / WTR 10 MEQ/100 ML PLCT IV SCH ×4 (00:18→04:47)
[2018-08-19 01:13] LABS: Appearance Urine Cloudy (Clear); Bacteria Urine Automated Negative (Negative); Bilirubin Urine Negative (Negative); Blood Urine 3+ (Negative); Cast Urine Automated 0 /lpf (0-5); Color Urine Dark Yellow; Glucose Urine UA Negative (Negative); Ketones Urine Negative (Negative); Leukocyte Esterase Urine 2+ (Negative); Nitrite Urine Positive (Negative); Protein Urine 1+ (Negative); Specific Gravity Urine 1.039 (1.000-1.030); Urobilinogen Urine Positive (Negative); WBC Urine Automated >30 /hpf (0-5)
[2018-08-19 01:25] LABS: RBC Urine Automated 0-4 /hpf (0-4)
[2018-08-19] MEDS: MoRPHine SULFATE 2 MG/ML CARP IV PRN ×3 (03:07→15:59)
[2018-08-19 06:37] LABS: Hematocrit (blood only) 31.5 % (37-47); Hemoglobin 10.5 g/dL (12.0-16.0); Mean Corpuscular Hgb Conc 33.3 g/dL (32-36); Mean Corpuscular Volume 87.7 fL (80-100); Mean Platelet Volume 12.2 fL (7.4-10.4); Platelet Count 77 K/uL (130-400); RDW Coefficient of Variation 13.3 % (11.5-14.5); RDW Standard Deviation 43.6 fL (36.4-46.3); Red Blood Count 3.59 M/uL (4.2-5.4); White Blood Count 6.83 K/uL (4.8-10.8)
[2018-08-19 06:45] LABS: INR 1.2 (0.9-1.1); Prothrombin Time 12.5 Seconds (9.0-12.0)
[2018-08-19 07:07] LABS: Calcium 7.2 mg/dl (8.5-10.1); Creatinine Clr Calc Pharmacy 102.4 ml/min; Est GFR (African American) 103.6; Est GFR (Non-African American) 89.4; Magnesium 2.1 mg/dl (1.8-2.4)
[2018-08-19 07:16] LABS: Phosphorus 0.6 mg/dl (2.5-4.9)
[2018-08-19] MEDS ORDERED: POTASSIUM PHOS 3 MMOL/1 ML INFUSION IV STA (07:34)
--- NOTE | 2018-08-19 07:35 | Hospitalist Progress Note ---
Date of Service August 19, 2018 Assessment & Plan (1) Nausea and vomitin-year-old female was admitted for nausea, vomiting, hypokalemia, and pyelonephritis. Nausea and vomiting, right pyelonephritis: History of UTI and noncompliance with taking antibiotics. CT a/p with IV contrast with concerns for developing right pyelonephritis without hydronephrosis or abscess. No nephrolithiasis seen. ceftriaxone 1 gram IV every 24 hours. Tylenol and Zofran for pain and nausea Hypokalemia, Hypomagnesemia: Admit K 2.5. EKG notes NSR 82 without U waves. Admit Mg 1.6. On repeat her potassium and phosphorus were still low these were repleted using potassium phosphate Thrombocytopenia: This remains low,. CT a/p mentions borderline splenomegaly. Patient denies left upper quadrant/flank pain. Exposure to tick bites. This could be related to infection no reports of recent easy bleeding. - Recheck CBC in a.m. Hypoalbuminemia: Admit albumin 2.8. Calcium corrects to 8.5. Code status: Full code. DVT prophy: Lovenox. PT/OT: Deferred. (2) Pyelonephritis of right kidney: (3) Hypokalemia: (4) Hypomagnesemia: (5) Thrombocytopenia: (6) Hypoalbuminemia: Subjective pt does not feel dramatically improved, she has some minor flank pain and dysuria Review of Systems Review of Systems: ROS: well nourished well developed. No double vision blurry vision No problems with speech or swallowing No palpitations, chest pain or pressure No Wheezing or breathing issues mild abdominal pain, no nausea vomiting or diarrhea mild dysuria and frequency No focal joint pain or muscle pain No skin rashes or oral lesions No unusual bruising or bleeding No focused back pain or numbness or loss of strength No changes in memory or confusion Physical Exam Physical Exam: The patient appeared well nourished and normally developed. Vital signs as documented. Head exam is unremarkable. normocephalic, atraumatic Neck is without jugular venous distension, thyromegaly, or lymphademopathy Lungs are clear to auscultation and percussion. Cardiac exam reveals Rhythm is regular. First and second heart sounds normal. Abdominal exam reveals minor diffuse tenderness, no guarding no rebound, normal bowel sounds, no masses, no organomegaly Extremities are nonedematous and both pedal pulses are present Neurologic exam is A&Ox3, no focal deficits, strength is equal bilateral Psychologically seems neither anxious or depressed Skin is warm Dry without bruises or lesions Results & Data Vital Signs (Past 12 Hours) Vital Signs Temp Pulse Pulse Resp BP BP Pulse Ox 08/19/18 07:10 37.3 C 95 H 18 113/73 96 08/19/18 03:24 130 H 08/19/18 03:15 37.1 C 142 H 18 123/92 98 08/18/18 23:39 37.1 C 137 H 24 167/116 H 100 08/18/18 23:12 37.2 C 133 H 26 H 122/87 95 08/18/18 23:06 133 H 26 H 122/87 95 08/18/18 21:30 93 H 21 110/71 100 08/18/18 21:00 93 H 20 115/75 100 08/18/18 20:47 99 H 27 H 109/65 99 08/18/18 20:36 99 H 24 77/69 L 100 08/18/18 20:35 94 H 19 87/79 L 100 PG Care Time/CCT Total # of Minutes Spent Total Time Spent with Patient: Total time spent is greater than 50% in coordination of care (as documented) at patient's floor/unit and/or counseling patient:
[2018-08-19] MEDS ORDERED: POTASSIUM PHOSPHATE 30 MMOL in SODIUM CHLORIDE 0.9% 500 ML IV ONE (08:00)
[2018-08-19 08:01] LABS: Immature Granulocytes # (auto) 0.02 K/uL (0.00-0.02); Immature Granulocytes % (auto) 0.3 %; Lymphocytes # (auto) 0.31 K/uL (1.2-3.4); Lymphocytes % (auto) 4.5 %; Monocytes # (auto) 0.22 K/uL (0.11-0.59); Monocytes % (auto) 3.2 %; Neutrophils # (auto) 6.28 K/uL (1.4-6.5)
[2018-08-19] MEDS ORDERED: ENOXAPARIN INJ 40 MG/0.4 ML SYR SQ SCH (09:00)
[2018-08-19] MEDS ORDERED: PIPERACILL/TAZOBAC CONSULT ACTIVE PRN (18:27)
[2018-08-19] MEDS ORDERED: KETOROLAC 30 MG/ML VIAL IV ONE (18:40)
[2018-08-19] MEDS ORDERED: KETOROLAC TROMETHAMINE 15 MG/ML VIAL IV PRN (18:40)
[2018-08-19] MEDS ORDERED: VANCOMYCIN HCL 1,750 MG in SODIUM CHLORIDE 0.9% 500 ML IV STA (18:51)
[2018-08-19] MEDS ORDERED: VANCOMYCIN CONSULT ACTIVE PRN (18:57)
[2018-08-19] MEDS ORDERED: PIPERACILLIN/TAZOBACTAM 3.375 GM in DEXTROSE 5% 100 ML IV ONE (19:00)
--- NOTE | 2018-08-19 19:00 | Pharmacy Report ---
Pharmacy Abx Dose Short Note - Date of Service August 19, 2018 - Assessment & Plan Assessment 28 year old F receiving vancomycin for treatment of pyelonephritis Day # 1/? of antimicrobial therapy. Plan Vancomycin * Vanco 1750mg (20mg/kg) IV X1 to quickly achieve a therapeutic peak * then vancomycin 1250 (14mg/kg) IV Q8 * goal trough: 15-20mcg/mL * Trough ordered for 08/21/18 @0330 Zosyn appropriately dosed pursuant to renal fxn and clinical status Pharmacy will continue to follow and will adjust dose/frequency as necessary. Thank you.
[2018-08-19 19:26] LABS: BUN Creatinine Ratio 8.8 (10-20); Calcium 7.6 mg/dl (8.5-10.1); Est GFR (African American) 121.8; Est GFR (Non-African American) 105.1; Potassium 3.3 mmol/L (3.5-5.1)
--- NOTE | 2018-08-19 21:50 | Discharge Summary ---
Date of Service August 19, 2018 Admission HPI Per Admitting Provider 28-year-old female presents to the emergency department nausea vomiting for 3 to 4 days as well as right flank pain for about 2 days. Patient says she has a history of recurrent UTIs "about one per month. However, patient says that she will often fill the antibiotics but not complete intercourse due to either not remembering her or being too busy with her 3 kids. Minimal food intake during these past few days but has tried to stay dehydrated. Denies diarrhea. Says max temp was 101 earlier today but took some Tylenol. Denies bloody emesis. Says she presently has right flank pain without radiation. No other acute patient concerns. - Past medical history includes recurrent UTIs, iron deficiency anemia in . - Past surgical history includes cholecystectomy, x3, tubal ligation. - Social history includes smoking 1 pack/day for 15 years. Denies alcohol and illicit drug use. Lives with boyfriend and three children with family nearby. Admission Exam Per Admitting Provider GENERAL: Awake, alert, appears a little uncomfortable due to right flank pain, but does not appear in acute distress. HENT: Normocephalic, atraumatic. Oropharynx mildly dry. EYES: Normal conjunctiva. Sclera non-icteric. NECK: Inspection normal. Supple and full ROM. No nuchal rigidity. CARDIAC: +S1S2 RRR, no murmurs. RESPIRATORY: Clear to auscultation. No wheezes or rales. Normal respiratory effort. GI: +BS, soft, non-distended. No tenderness to palpation anteriorly. No rebound or guarding. Positive right flank CVA tenderness to palpation. EXTREMITIES: No pedal edema or calf tenderness. Moving all extremities naturally and easily. NEURO: No gross neuro deficits. Principal Diagnosis Nausea and vomiting, right-sided pyelonephritis, hypokalemia, hypomagnesemia, thrombocytopenia, borderline splenomegaly, hypoalbuminemia. Discharge Exam Please see physical exam earlier today. At present, is awake, alert, a bit tearful and anxious, but does not appear in any distress. Is actively talking and typing on her phone. Discharge Data Allergies Allergy/AdvReac Type Severity Reaction Status Date / Time ciprofloxacin Allergy Intermediate Hives Verified 08/20/18 13:31 Consultations 08/18/18 20:56 ED Decision to Admit Stat Ordered Studies CT abd pelvis IV con only CLINICAL HISTORY: 28 years-old Female presenting with rlq pain, fevers, nausea. TECHNIQUE: Multidetector CT of the abdomen and pelvis was performed after the administration of intravenous contrast. IV contrast: 94 mL of Optiray 320. One or more dose lowering techniques were used consistent with the principles of ALARA (as low as reasonably achievable), including automatic exposure control, mA or kV adjustment to individual patient size, and/or use of iterative reconstruction. COMPARISON: None. CT DOSE (mGy.cm): The estimated cumulative dose is 465.68 mGy.cm. 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 Lung bases: Normal heart size. No pericardial or pleural effusion. No focal infiltrate or nodule at the lung bases. Liver: Normal morphology. No liver lesion. Patent hepatic vasculature. Biliary: Mild biliary ductal prominence likely a reservoir effect in the post cholecystectomy state. Gallbladder surgically absent. Pancreas: Normal. Spleen: Top normal in size measuring 13 cm in maximal sagittal dimension. Adrenal glands: Normal. Kidneys and ureters: Mild delayed perfusion of the right kidney. A limited region of hypoenhancement is noted along the anterior aspect of the interpolar region. Significant right urothelial thickening. No hydronephrosis. Extensive right periureteral fat stranding. No nephrolithiasis or ureteral calculus. Moderate asymmetric right perinephric fat infiltration as well as trace fluid in the right anterior pararenal space. No renal abscess. Bladder: Circumferential bladder wall thickening. Focus of gas in the urinary bladder may relate to recent catheterization. Pelvic organs: Uterus and ovaries normal. A tampon is in place within the vagina. Bowel: Normal appendix. No bowel obstruction. Peritoneal cavity: No free fluid or intraperitoneal gas. Trace retroperitoneal fluid as mentioned. Lymph nodes: No enlarged lymph nodes in the abdomen or pelvis. Vasculature: Aorta and IVC patent and normal in caliber. Abdominal wall: Small fat-containing umbilical hernia. Musculoskeletal: Normal. IMPRESSION: 1. Cystitis with upper urinary tract involvement of infection and suspected developing lobar nephronia/focal polynephritis. No hydronephrosis. No renal abscess. 2. No nephrolithiasis or evidence of a recently passed calculus. 3. Borderline splenomegaly. 08/19/18 18:41 US renal/blad retro comp Routine (Order was pending at the time of AMA) Hospital Course (1) Nausea and vomiting: I received a call from the patient's nurse this evening stating the patient wishes to leave AMA immediately. I personally know her from her admission yesterday. Spoke with the patient for about 10 minutes this evening starting around 9:15 PM. Patient states that the hospital "did not do anything for me all day", did not provide her with any pain medication, and that she would rather be at home cleaning her house. She also said that she looked up the antibiotics that she was on and that she can get them by pills, therefore she wants to go home on antibiotics. - I clarified with the patient that the antibiotics she is currently on are only in IV form. - After looking the chart, patient received Tylenol and two doses of morphine today. Patient then said that she did receive pain medication but that it was too late. I reiterated to the patient that the reason she is likely here in the hospital is in part due to noncompliance with taking oral antibiotics for previous bladder/kidney infections. I discussed that kidney infection is different than a bladder infection and that it can be far more serious and can lead to spread of the infection into her bloodstream. In the worst of these cases, this can lead to severe illness, unconsciousness, and . I implored her and her boyfriend at bedside (with the patient's permission) to stay for the remainder of the evening to complete another round of IV antibiotics. She could then discuss with her primary team in the morning the possibility of going home on further oral antibiotic's. The patient remained absolutely adamant that she wanted to go home this evening but with no logical reason to do so. She verbally reiterated that if she were to go home her infection could get worse, "they could spread into my bloodstream and I could get sick." Patient was also offered further pain medication this evening which she declined. Patient is awake, alert, appears a bit anxious and at times tearful, and seems a bit overwhelmed. No present evidence of direct intent to harm herself, others, or other psychotic features. Therefore she is able to make her own decisions at this time. Patient was given the opportunity to discuss the above with her boyfriend without me in the room. On return, both patient and her boyfriend wish for the patient to go home. Therefore she will be leaving AGAINST MEDICAL ADVICE. Patient will be discharged on cefixime 400 mg orally for 2 weeks. She is recommended to take Tylenol as needed for pain. She was recommended verbally and on discharge instructions to follow-up with her primary care provider as soon as possible for very close monitoring of this kidney infection. She is also absolutely welcome to return to the emergency department at any time if she changes her mind and wishes to have continued care here. Patient signed the written AMA form prior to departure. The above plan is discussed with Dr. Carter at the time of discharge. Leilani Veloz, PGY3 Overnight call Progress note from earlier today: 28-year-old female was admitted for nausea, vomiting, hypokalemia, and pyelonephritis. Nausea and vomiting, right pyelonephritis: History of UTI and noncompliance with taking antibiotics. CT a/p with IV contrast with concerns for developing right pyelonephritis without hydronephrosis or abscess. No nephrolithiasis seen. ceftriaxone 1 gram IV every 24 hours. Tylenol and Zofran for pain and nausea Hypokalemia, Hypomagnesemia: Admit K 2.5. EKG notes NSR 82 without U waves. Admit Mg 1.6. On repeat her potassium and phosphorus were still low these were repleted using potassium phosphate Thrombocytopenia: This remains low,. CT a/p mentions borderline splenomegaly. Patient denies left upper quadrant/flank pain. Exposure to tick bites. This could be related to infection no reports of recent easy bleeding. - Recheck CBC in a.m. Hypoalbuminemia: Admit albumin 2.8. Calcium corrects to 8.5. Code status: Full code. DVT prophy: Lovenox. PT/OT: Deferred. (2) Pyelonephritis of right kidney: (3) Hypokalemia: (4) Hypomagnesemia: (5) Thrombocytopenia: (6) Hypoalbuminemia: Total Time Total Time Spent Total Time Spent (In Minutes): >30 min Discharge Plan Discharge Items Patient Disposition: Against Medical Advice Reason For Visit: PYELONEPHRITIS,HYPOKALEMIA Discharge Diagnosis: Right pyelonephritis, low potassium, low magnesium, low platelets. Discharge Goals: Decrease discomfort and Learn about illness Activity: Per 'Additional Instructions' section Non-emergency contact: Primary Care Provider Call non-emergency contact if: you have any medication questions, your symptoms worsen, your pain is not controlled, your pain is worsening and you have a fever Follow-up/Referrals: PCP,MICHELE [Primary Care Provider] - Diet: Regular Addtl Provider Instructions: You are leaving the hospital AGAINST MEDICAL ADVICE due to your wish to go home. As we discussed, you were diagnosed with a kidney infection (pyelonephritis) and are actively getting IV antibiotics to treat this. At this time IV antib iotics are preferable to oral antibiotics to help kill this infection. We are also concerned that because of your previous history of not taking oral antibiotics that you may not take the full course of antibiotics being prescribed now. By not fully treating this infection you run the risk of permanent kidney damage, spread of bacteria from your kidney into your bloodstream, very serious body-wide illness, and in the worst cases . You will be prescribed an antibiotic called cefixime. Please take this medication once per day for the next 2 weeks. If you have any concerns about side effects or an allergic reaction please either return here for further evaluation. Otherwise, it is very important that you complete the course of antibiotics. If it turns out you develop an antibiotic resistant bacteria will be much more difficult to treat you in the future. You are advised to take [id number] Tylenol as needed for any pain. Please see your primary care provider as soon as possible, preferably tomorrow, for very close follow-up for your kidney infection. You are absolutely welcome to return to the emergency department or to the hospital anytime if you change your mind or if you have any worsening symptoms. Prescriptions: New cefixime 400 mg capsule 400 mg PO DAILY 14 Days Qty: 14 RF: 0 Stand-Alone Forms: My [facility] Discharge Orders: Left Against Medical Advice (Routine); Ordered 08/19/18 Ordered By: Albert Veloz Admission Data Admit Date/Time: 08/18/18 23:00 Attending Provider: Chilango Peterson Admit Provider: Julian Carter Primary Care Provider: DANNY,MICHELE Other Providers: Julian Carter Service: Telemetry Medical Other Interventions: Discharge Summary Assessment (RN) Last Done: 08/19/18 21:51 DC Date/Time DO NOT enter until pt leaves facility: 08/19/18 22:40 Supervising Physician Co-Signing Physician Notes Attending addendum: I have physically seen this patient, have supervised the medical residents activities, and agree with the H&P unless as otherwise noted. Assessment and Plan: AGAINST MEDICAL ADVICE- This patient has elected to leave the hospital against the advice of her tr eating physicians. She still receiving IV antibiotics and IV fluids for a serious kidney infection. This was explained to her in depth, with possibilities including worsening infection, loss of kidney, and potentially sepsis and loss of life. Patient reports that she understands the risks. She is felt to be competent to make her own medical decisions. The patient was given prescriptions as noted, and advised to follow-up with her primary physician YAO. Remaining orders and notations as noted. Resident Activity Tracking Resident Involvement: Resident Care Provided Care Provided: Adult [facility]
[2018-08-19] MEDS ORDERED: cefTRIAXone SODIUM 2,000 MG in DEXTROSE 5% 50 ML IV SCH (22:00)
[2018-08-20] MEDS ORDERED: PIPERACILLIN/TAZOBACTAM 3.375 GM in DEXTROSE 5% 100 ML IV SCH
[2018-08-20] MEDS ORDERED: VANCOMYCIN HCL 1,250 MG in SODIUM CHLORIDE 0.9% 250 ML IV SCH (04:00)
[2018-08-21] MEDS ORDERED: VANCOMYCIN TROUGH ONE (03:30)
== END 2018-08-19 22:40 | disposition left against medical advice (07) | DRG 690 ==
LOC: ED 16:29 → 2W 23:00 → SUATTDRO 23:00 → 2W 23:12
DX: Z87.440 Personal history of urinary (tract) infections; F17.200 Nicotine dependence, unspecified, uncomplicated; N12 Tubulo-interstitial nephritis, not specified as acute or chronic; R11.2 Nausea with vomiting, unspecified; E87.6 Hypokalemia; D69.6 Thrombocytopenia, unspecified; E88.09 Other disorders of plasma-protein metabolism, not elsewhere classified; E83.42 Hypomagnesemia; Z88.1 Allergy status to other antibiotic agents

== ENCOUNTER 2018-08-20 11:49 | Observation (INO) ==
[2018-08-20] MEDS ORDERED: SODIUM CHLORIDE 0.9% 1000ML 2,000 ML IV ONE (12:10)
[2018-08-20] MEDS ORDERED: ACETAMINOPHEN 1,000 MG/100 ML VIAL IV STA (12:10)
--- NOTE | 2018-08-20 12:30 | XRay Report ---
XR chest 1V portable HISTORY: 28 years-old Female Sepsis acute sepsis COMPARISON: CT abdomen and pelvis 08/18/2018 TECHNIQUE: Portable AP view of the chest FINDINGS: Cardiac mediastinal and hilar silhouettes are within normal limits. No pneumothorax, pleural effusion , focal airspace consolidation or overt pulmonary edema. Cholecystectomy. Bones of the chest appear g rossly intact. IMPRESSION: No acute process. The above report was generated using voice recognition software. It may contain grammatical, syntax o r spelling errors. Electronically signed by: Albert Serrano M.D. 08/20/2018 12:29 PM
[2018-08-20 12:47] LABS: Partial Thromboplastin Ratio 1.1; Partial Thromboplastin Time 29.5 Seconds (21.0-31.0); Prothrombin Time 10.2 Seconds (9.0-12.0)
[2018-08-20] MEDS ORDERED: MoRPHine SULFATE 10 MG/ML CARP/VIAL IV STA (12:48)
[2018-08-20 12:54] LABS: Appearance Urine Clear (Clear); Bacteria Urine Automated Negative (Negative); Bilirubin Urine Negative (Negative); Blood Urine 1+ (Negative); Color Urine Dark Yellow; Epithelial Cell Urine Auto >30 /lpf (0-5); Glucose Urine UA Negative (Negative); Ketones Urine Negative (Negative); Leukocyte Esterase Urine 2+ (Negative); Nitrite Urine Negative (Negative); Specific Gravity Urine 1.017 (1.000-1.030); Urobilinogen Urine Positive (Negative); WBC Urine Automated >30 /hpf (0-5); pH Urine 7.5 (4.5-7.5)
[2018-08-20 12:55] LABS: Albumin Level 2.5 gm/dl (3.4-5.0); BUN Creatinine Ratio 9.1 (10-20); Creatinine Clr Calc Pharmacy 140.2 ml/min; Est GFR (African American) 140.7; Est GFR (Non-African American) 121.4; Magnesium 1.9 mg/dl (1.8-2.4); Potassium 3.5 mmol/L (3.5-5.1)
[2018-08-20 12:56] LABS: Protein Urine Negative (Negative)
[2018-08-20 12:58] LABS: Pregnancy Test, Serum Negative (Negative)
[2018-08-20 13:05] LABS: Albumin Globulin Ratio 0.7 (0.9-2); Bilirubin,Total 0.4 mg/dl (0.2-1); Globulin 3.3 gm/dl (2.5-4.0); Phosphorus 1.8 mg/dl (2.5-4.9); Total Protein 5.8 gm/dl (6.4-8.2)
[2018-08-20 13:05] LABS: Base Excess VBG -1.7 mEq/L; Oxygen Saturation VBG 66.9 %; pH VBG 7.48 (7.36-7.41)
[2018-08-20 13:08] LABS: Renal Epithelial Cells Urine 0-5 /lpf (0-5)
[2018-08-20 13:10] LABS: Hematocrit (blood only) 31.5 % (37-47); Hemoglobin 10.6 g/dL (12.0-16.0); Mean Corpuscular Hgb Conc 33.7 g/dL (32-36); Mean Corpuscular Volume 86.3 fL (80-100); Mean Platelet Volume 12.2 fL (7.4-10.4); Platelet Count 80 K/uL (130-400); RDW Coefficient of Variation 13.4 % (11.5-14.5); RDW Standard Deviation 43.1 fL (36.4-46.3); Red Blood Count 3.65 M/uL (4.2-5.4)
[2018-08-20 13:11] LABS: Bilirubin Direct 0.2 mg/dl (0-0.2)
[2018-08-20] MEDS ORDERED: POTASSIUM PHOS 3 MMOL/1 ML INFUSION IV STA (13:13)
[2018-08-20] MEDS ORDERED: ONDANSETRON INJ 2 MG/ML 2 ML VIAL IV STA (13:13)
[2018-08-20] MEDS ORDERED: POT PHOSPHATE MONOBASIC W/ SOD TAB PO STA (13:13)
[2018-08-20] MEDS ORDERED: MoRPHine SULFATE 4 MG/ML 1 ML CARP\\VIAL ONE (13:16)
[2018-08-20] MEDS ORDERED: cefTRIAXone SODIUM 2,000 MG in DEXTROSE 5% 50 ML IV STA (13:19)
[2018-08-20 13:25] LABS: Basophils # (auto) 0.01 K/uL (0-0.2); Basophils % (auto) 0.2 %; Eosinophils # (auto) 0.02 K/uL (0-0.5); Eosinophils % (auto) 0.3 %; Immature Granulocytes # (auto) 0.01 K/uL (0.00-0.02); Immature Granulocytes % (auto) 0.2 %; Lymphocytes # (auto) 0.95 K/uL (1.2-3.4); Lymphocytes % (auto) 16.4 %; Monocytes # (auto) 0.37 K/uL (0.11-0.59); Monocytes % (auto) 6.4 %; Neutrophils # (auto) 4.44 K/uL (1.4-6.5); Neutrophils % (auto) 76.5 %
[2018-08-20] MEDS ORDERED: POTASSIUM PHOSPHATE 9 MMOL in SODIUM CHLORIDE 0.9% 250 ML IV ONE (13:30)
--- NOTE | 2018-08-20 13:49 | Emergency Department Note ---
Entered by Lilia Ayala acting as a scribe for Alton Feliz MD History of Present Illness General Chief complaint: Abdominal Pain Stated complaint: RT SIDED ABD/FLANK PAIN,SWELLING,CANT URINATE,FEVE Time Seen by Provider: 08/20/18 12:09 Source: patient Mode of arrival: ambulatory Limitations: no limitations History of Present Illness Onset (ago): day(s) 3 Location: back (right sided flank) Radiation: abdomen Pain Consistency: + constant Maximum Pain Intensity: 9 Current Pain Intensity: 9 Relieved By: + none Exacerbated By: + none Associated symptoms: + nausea/vomiting (+nausea, -vomiting) and + other (+difficulty urinating, ) Treatments prior to arrival: other (Tylenol and Ibuprofen) The patient is a 28 year old female who presents to the ED with complaints of worsening right sided flank pain. She was seen here in the ED 2 days ago and was supposed to stay in the hospital, but left AMA last night because she felt "like nothing was being done, and I was still in pain". She rates her pain as a 9/10 in severity. The pain radiates into her abdomen. Tylenol and Ibuprofen have provided minimal relief. She is still nauseated but has not vomited. She states she feels like she needs to urinate, but when she tries to go, is unable too. The patient does admit to a history of UTI's and a history of right sided pyelonephritis. Home Medications Home Medications Medication Instructions Recorded Confirmed Type cefixime 400 mg PO DAILY 14 Days #14 cap 08/19/18 08/20/18 Rx Allergies Allergy/AdvReac Type Severity Reaction Status Date / Time ciprofloxacin Allergy Intermediate Hives Verified 08/20/18 13:31 Past Med/Surg History Surgical History History of cholecystectomy Social History Preferred Language: [place] Islander Communication Ability: Effective Ui Architect Required: No Beliefs That Will Affect Care: None Current Living Situation: Family Current Living Situation Comment: mecca(boyfriend) and 2 children. Other Information That Helps Us Care for You: No Feels Safe at Home: Yes Safety Concerns: Feels Safe At This Time Smoking Status: Current every day smoker Tobacco Type: cigarettes Cigarettes Per Day: 15 Do You Dip or Chew Tobacco: No Second Hand Exposure: Yes Tobacco Cessation Education Requested by Patient: No Hx Alcohol Use: No Hx Substance Use: No Review of Systems See HPI for pertinent positives & negatives. and A total of 10 systems reviewed and were otherwise negative Physical Exam Vital Signs Vital Signs - 24 hr 08/20/18 11:53 08/20/18 12:10 08/20/18 13:42 Temperature 37.4 C Temperature Source Oral Sepsis Recent Fever Within 48 Hours No Sepsis Action Taken by Nursing No Action Required Pulse Rate 107 H 98 H Pulse Rate [Apical] 91 H Respiratory Rate 22 20 24 Respiratory Effort / Characteristics Non-Labored Spontaneous Respiratory Depth Normal Respiratory Pattern Regular Blood Pressure 135/79 Blood Pressure [Right Arm] 142/87 H Blood Pressure Mean 97 Blood Pressure Mean [Right Arm] 105 Blood Pressure Position Sitting Blood Pressure Position [Right Arm] Lying Pulse Oximetry 100 97 97 Oxygen Delivery Method Room Air Room Air 08/20/18 14:22 Temperature Temperature Source Sepsis Recent Fever Within 48 Hours Sepsis Action Taken by Nursing Pulse Rate Pulse Rate [Apical] 105 H Respiratory Rate Respiratory Effort / Characteristics Respiratory Depth Respiratory Pattern Blood Pressure Blood Pressure [Right Arm] 117/69 Blood Pressure Mean Blood Pressure Mean [Right Arm] 85 Blood Pressure Position Blood Pressure Position [Right Arm] Pulse Oximetry 95 Oxygen Delivery Method Room Air GENERAL: Awake, alert, uncomfortable and fatigued-appearing, in no distress HENT: Normocephalic, atraumatic. Oropharynx with dry mucous membranes and otherwise unremarkable. EYES: Normal conjunctiva. Sclera non-icteric. NECK: Supple. No nuchal rigidity. FROM. No JVD. RESPIRATORY: CTAB. CARDIAC: Regular rate, normal rhythm. Extremities warm and well perfused. Pulses equal. ABDOMEN: Soft, non-distended. Mild lower abdominal tenderness to palpation. No rebound or guarding. No masses. RECTAL: Deferred. MUSCULOSKELETAL: Chest examination reveals no tenderness. The back is symme trical on inspection without obvious abnormality. Mild bilateral CVA tenderness to palpation. No joint edema. LOWER EXTREMITIES: Calves are equal size bilaterally and non-tender. No edema. No discoloration. NEURO: Normal sensorium. No sensory or motor deficits noted. SKIN: No rash or jaundice noted. Course 1217: The patient was evaluated in room A2 and a complete history and physical were performed. 1220: I explained to the patient that we will treat her pain, but her goal should be to minimize her use of narcotics as much as possible. 1320: I reevaluated the patient. I discussed her results and my recommendation she remain in the hospital for further evaluation and management and she verbalized complete understanding and agreement. 1341: I discussed the patients case with Lauren Ocampo PA-C, Jeanne Bates Hospitalist. The patient will be further evaluated. Consultations Consultation #1: I discussed the patients case with Lauren Ocampo PA-C, Jeanne Bates Hospitalist. The patient will be further evaluated. Time: 13:41 Administered Medications Lactated Ringer's (Lr) 1,000 mls @ 125 mls/hr IV .Q8H MYLES Stop: 08/21/18 07:59 Last Admin: 08/20/18 16:37 Dose: 125 mls/hr Documented by: [id number] Ketorolac Tromethamine (Toradol) 15 mg IV Q6H PRN PRN Reason: Pain Stop: 08/25/18 15:47 Last Admin: 08/20/18 16:42 Dose: 15 mg Documented by: [id number] Nicotine (Nicoderm Cq) 21 mg TD QAM MYLES Stop: 09/19/18 15:47 Last Admin: 08/20/18 17:41 Dose: Not Given Documented by: [id number] Discontinued Medications Acetaminophen (Ofirmev) 1,000 mg in 100 mls @ 400 mls/hr IV NOW STA Stop: 08/20/18 12:24 Last Infusion: 08/20/18 14:18 Dose: 0 mls/hr Documented by: [id number] Admin: 08/20/18 13:33 Dose: 400 mls/hr Documented by: [id number] Sodium Chloride (Nss 1000ml) 2,000 mls @ 999 mls/hr IV .Q2H1M ONE Stop: 08/20/18 14:10 Last Infusion: 08/20/18 14:53 Dose: 0 mls/hr Documented by: [id number] Admin: 08/20/18 13:33 Dose: 999 mls/hr Documented by: [id number] Magnesium Sulfate/Dextrose (Magnesium Sulfate / D5w) 1 gm in 100 mls @ 100 mls/hr IV Q1H MYLES Stop: 08/20/18 15:14 Last Infusion: 08/20/18 17:41 Dose: 0 mls/hr Documented by: [id number] Admin: 08/20/18 16:37 Dose: 100 mls/hr Documented by: [id number] Infusion: 08/20/18 16:12 Dose: 100 mls/hr Documented by: [id number] Admin: 08/20/18 15:12 Dose: 100 mls/hr Documented by: [id number] Potassium Phosphate 9 mmol/ (Sodium Chloride) 253 mls @ 88 mls/hr IV ONE ONE Stop: 08/20/18 16:22 Last Infusion: 08/20/18 17:16 Dose: 0 mls/hr Documented by: [id number] Admin: 08/20/18 14:18 Dose: 88 mls/hr Documented by: [id number] Ceftriaxone Sodium 2,000 mg/ (Dextrose) 70 mls @ 100 mls/hr IV NOW STA Stop: 08/20/18 14:00 Last Infusion: 08/20/18 15:19 Dose: 0 mls/hr Documented by: [id number] Admin: 08/20/18 14:07 Dose: 100 mls/hr Documented by: [id number] Morphine Sulfate (Morphine Sulfate) 8 mg IV NOW STA Stop: 08/20/18 12:49 Last Admin: 08/20/18 13:34 Dose: Not Given Documented by: [id number] Morphine Sulfate (Morphine Sulfate) Confirm Administered Dose 8 mg .ROUTE .STK- MED ONE Stop: 08/20/18 13:17 Last Admin: 08/20/18 13:34 Dose: 8 mg Documented by: [id number] Ondansetron HCl (Zofran) 4 mg IV NOW STA Stop: 08/20/18 13:14 Last Admin: 08/20/18 13:34 Dose: 4 mg Documented by: [id number] Potassium Phosphate (Phospha 250 Neutral 155-852-130 Mg) 2 tab PO NOW STA Stop: 08/20/18 13:14 Last Admin: 08/20/18 15:14 Dose: 2 tab Documented by: [id number] Medical Decision Making Differential Diagnosis Differential diagnoses includes but is not limited to gastritis, peptic ulcer disease, GERD, gallbladder disease, pancreatitis, small bowel obstruction, acute coronary syndrome, pericarditis, ischemic bowel, irritable bowel disease, irritable bowel syndrome, appendicitis, diverticulitis, malignancy, hernia, urinary tract infection, torsion, /ectopic , perforation, trauma, infectious. Medical Records Attestation: I reviewed the patient's medical records. Home Medications Current Medication List: was personally reviewed by me Laboratory Data Attestation: I reviewed the patient's lab results. Result diagrams: 08/20/18 12:48 08/20/18 12:20 Lab Results 08/20/18 08/20/18 08/20/18 Range/Units 12:20 12:20 12:20 WBC (4.8-10.8) K/uL RBC (4.2-5.4) M/uL Hgb (12.0-16.0) g/dL Hct (37-47) % MCV (80-100) fL MCH (25-34) pg MCHC (32-36) g/dL RDW Std Deviation (36.4-46.3) fL RDW Coeff of Jose (11.5-14.5) % Plt Count (130-400) K/uL MPV (7.4-10.4) fL Immature Gran % (Auto) % Neut % (Auto) % Lymph % (Auto) % [place] % (Auto) % Eos % (Auto) % Baso % (Auto) % Immature Gran # (Auto) (0.00-0.02) K/uL Neut # (Auto) (1.4-6.5) K/uL Lymph # (Auto) (1.2-3.4) K/uL [place] # (Auto) (0.11-0.59) K/uL Eos # (Auto) (0-0.5) K/uL Baso # (Auto) (0-0.2) K/uL PT 10.2 (9.0-12.0) Seconds INR 1.0 (0.9-1.1) APTT 29.5 (21.0-31.0) Seconds PTT Ratio 1.1 VBG pH (7.36-7.41) VBG pCO2 (38-50) mmHg VBG pO2 mmHg VBG HCO3 mmol/L VBG O2 Saturation % VBG Base Excess mEq/L Barometric Pressure mm/Hg Sodium 137 (136-145) mmol/L Potassium 3.5 (3.5-5.1) mmol/L Chloride 108 H (98-107) mmol/L Carbon Dioxide 23 (21-32) mmol/L Anion Gap 7.0 (3-11) BUN 6 L (7-18) mg/dl Creatinine 0.64 (0.6-1.2) mg/dl Est Cr Clr Drug Dosing 140.2 ml/min Est GFR ( Amer) 140.7 Est GFR (Non-Af Amer) 121.4 BUN/Creatinine Ratio 9.1 L (10-20) Glucose 82 (70-99) mg/dl Lactate (0.4-2.0) mmol/L Calcium 8.0 L (8.5-10.1) mg/dl Phosphorus 1.8 L D (2.5-4.9) mg/dl Magnesium 1.9 (1.8-2.4) mg/dl Total Bilirubin 0.4 D (0.2-1) mg/dl Direct Bilirubin 0.2 D (0-0.2) mg/dl AST 16 (15-37) U/L ALT 18 (12-78) U/L Alkaline Phosphatase 86 (45-117) U/L Total Protein 5.8 L (6.4-8.2) gm/dl Albumin 2.5 L (3.4-5.0) gm/dl Globulin 3.3 (2.5-4.0) gm/dl Albumin/Globulin Ratio 0.7 L (0.9-2) HCG, Qual Negative (Negative) Urine Color Urine Appearance (Clear) Urine pH (4.5-7.5) Ur Specific Kimberly (1.000-1.030) Urine Protein (Negative) Urine Glucose (UA) (Negative) Urine Ketones (Negative) Urine Blood (Negative) Urine Nitrite (Negative) Urine Bilirubin (Negative) Urine Urobilinogen (Negative) Ur Leukocyte Esterase (Negative) Urine WBC (Auto) (0-5) /hpf Urine RBC (Auto) (0-4) /hpf U Hyaline Cast (Auto) (0-5) /lpf U Epithel Cells (Auto) (0-5) /lpf Urine Bacteria (Auto) (Negative) Ur Renal Epithelial Cell (0-5) /lpf 08/20/18 08/20/18 08/20/18 Range/Units 12:22 12:48 12:48 WBC 5.80 (4.8-10.8) K/uL RBC 3.65 L (4.2-5.4) M/uL Hgb 10.6 L (12.0-16.0) g/dL Hct 31.5 L (37-47) % MCV 86.3 (80-100) fL MCH 29.0 (25-34) pg MCHC 33.7 (32-36) g/dL RDW Std Deviation 43.1 (36.4-46.3) fL RDW Coeff of Jose 13.4 (11.5-14.5) % Plt Count 80 L (130-400) K/uL MPV 12.2 H (7.4-10.4) fL Immature Gran % (Auto) 0.2 % Neut % (Auto) 76.5 % Lymph % (Auto) 16.4 % [place] % (Auto) 6.4 % Eos % (Auto) 0.3 % Baso % (Auto) 0.2 % Immature Gran # (Auto) 0.01 (0.00-0.02) K/uL Neut # (Auto) 4.44 (1.4-6.5) K/uL Lymph # (Auto) 0.95 L (1.2-3.4) K/uL [place] # (Auto) 0.37 (0.11-0.59) K/uL Eos # (Auto) 0.02 (0-0.5) K/uL Baso # (Auto) 0.01 (0-0.2) K/uL PT (9.0-12.0) Seconds INR (0.9-1.1) APTT (21.0-31.0) Seconds PTT Ratio VBG pH (7.36-7.41) VBG pCO2 (38-50) mmHg VBG pO2 mmHg VBG HCO3 mmol/L VBG O2 Saturation % VBG Base Excess mEq/L Barometric Pressure mm/Hg Sodium (136-145) mmol/L Potassium (3.5-5.1) mmol/L Chloride (98-107) mmol/L Carbon Dioxide (21-32) mmol/L Anion Gap (3-11) BUN (7-18) mg/dl Creatinine (0.6-1.2) mg/dl Est Cr Clr Drug Dosing ml/min Est GFR ( Amer) Est GFR (Non-Af Amer) BUN/Creatinine Ratio (10-20) Glucose (70-99) mg/dl Lactate 1.0 (0.4-2.0) mmol/L Calcium (8.5-10.1) mg/dl Phosphorus (2.5-4.9) mg/dl Magnesium (1.8-2.4) mg/dl Total Bilirubin (0.2-1) mg/dl Direct Bilirubin (0-0.2) mg/dl AST (15-37) U/L ALT (12-78) U/L Alkaline Phosphatase (45-117) U/L Total Protein (6.4-8.2) gm/dl Albumin (3.4-5.0) gm/dl Globulin (2.5-4.0) gm/dl Albumin/Globulin Ratio (0.9-2) HCG, Qual (Negative) Urine Color Dark Yellow Urine Appearance Clear (Clear) Urine pH 7.5 (4.5-7.5) Ur Specific Kimberly 1.017 (1.000-1.030) Urine Protein Negative (Negative) Urine Glucose (UA) Negative (Negative) Urine Ketones Negative (Negative) Urine Blood 1+ H (Negative) Urine Nitrite Negative (Negative) Urine Bilirubin Negative (Negative) Urine Urobilinogen Positive H (Negative) Ur Leukocyte Esterase 2+ H (Negative) Urine WBC (Auto) >30 H (0-5) /hpf Urine RBC (Auto) 5-10 H (0-4) /hpf U Hyaline Cast (Auto) 10-30 H (0-5) /lpf U Epithel Cells (Auto) >30 H (0-5) /lpf Urine Bacteria (Auto) Negative (Negative) Ur Renal Epithelial Cell 0-5 (0-5) /lpf 08/20/18 Range/Units 12:48 WBC (4.8-10.8) K/uL RBC (4.2-5.4) M/uL Hgb (12.0-16.0) g/dL Hct (37-47) % MCV (80-100) fL MCH (25-34) pg MCHC (32-36) g/dL RDW Std Deviation (36.4-46.3) fL RDW Coeff of Jose (11.5-14.5) % Plt Count (130-400) K/uL MPV (7.4-10.4) fL Immature Gran % (Auto) % Neut % (Auto) % Lymph % (Auto) % [place] % (Auto) % Eos % (Auto) % Baso % (Auto) % Immature Gran # (Auto) (0.00-0.02) K/uL Neut # (Auto) (1.4-6.5) K/uL Lymph # (Auto) (1.2-3.4) K/uL [place] # (Auto) (0.11-0.59) K/uL Eos # (Auto) (0-0.5) K/uL Baso # (Auto) (0-0.2) K/uL PT (9.0-12.0) Seconds INR (0.9-1.1) APTT (21.0-31.0) Seconds PTT Ratio VBG pH 7.48 H (7.36-7.41) VBG pCO2 29 L (38-50) mmHg VBG pO2 29 mmHg VBG HCO3 21 mmol/L VBG O2 Saturation 66.9 % VBG Base Excess -1.7 mEq/L Barometric Pressure 728.5 mm/Hg Sodium (136-145) mmol/L Potassium (3.5-5.1) mmol/L Chloride (98-107) mmol/L Carbon Dioxide (21-32) mmol/L Anion Gap (3-11) BUN (7-18) mg/dl Creatinine (0.6-1.2) mg/dl Est Cr Clr Drug Dosing ml/min Est GFR ( Amer) Est GFR (Non-Af Amer) BUN/Creatinine Ratio (10-20) Glucose (70-99) mg/dl Lactate (0.4-2.0) mmol/L Calcium (8.5-10.1) mg/dl Phosphorus (2.5-4.9) mg/dl Magnesium (1.8-2.4) mg/dl Total Bilirubin (0.2-1) mg/dl Direct Bilirubin (0-0.2) mg/dl AST (15-37) U/L ALT (12-78) U/L Alkaline Phosphatase (45-117) U/L Total Protein (6.4-8.2) gm/dl Albumin (3.4-5.0) gm/dl Globulin (2.5-4.0) gm/dl Albumin/Globulin Ratio (0.9-2) HCG, Qual (Negative) Urine Color Urine Appearance (Clear) Urine pH (4.5-7.5) Ur Specific Kimberly (1.000-1.030) Urine Protein (Negative) Urine Glucose (UA) (Negative) Urine Ketones (Negative) Urine Blood (Negative) Urine Nitrite (Negative) Urine Bilirubin (Negative) Urine Urobilinogen (Negative) Ur Leukocyte Esterase (Negative) Urine WBC (Auto) (0-5) /hpf Urine RBC (Auto) (0-4) /hpf U Hyaline Cast (Auto) (0-5) /lpf U Epithel Cells (Auto) (0-5) /lpf Urine Bacteria (Auto) (Negative) Ur Renal Epithelial Cell (0-5) /lpf Imaging Data Radiologist's Impression: Radiology results as stated below per my review and the radiologist's interpretation: XR chest 1V portable HISTORY: 28 years-old Female Sepsis acute sepsis COMPARISON: CT abdomen and pelvis 08/18/2018 TECHNIQUE: Portable AP view of the chest FINDINGS: Cardiac mediastinal and hilar silhouettes are within normal limits. No pneumothorax, pleural effusion, focal airspace consolidation or overt pulmonary edema. Cholecystectomy. Bones of the chest appear grossly intact. IMPRESSION: No acute process. The above report was generated using voice recognition software. It may contain grammatical, syntax or spelling errors. Electronically signed by: Albert Serrano M.D. 08/20/2018 12:29 PM ECG Data Attestation: I personally reviewed and interpreted this ECG as follows: Indication: abdominal pain Rate (beats per minute): 87 Rhythm: sinus with SA Findings: + other (Normal axis); no acute ischemic change Blood Pressure Blood Pressure Findings: Normal blood pressure Blood Pressure Disposition: further management by hospitalist MDM Narrative The patient is a pleasant 28 y/o woman with a pmhx of recurrent UTIs, noncompliance with medications who presents to the emergency department with worsening bilateral flank pain, feverishness, and body-aches after leaving AMA yesterday from admission here yesterday evening in the setting of being admitted for pyelonephritis per HPI. Patient left AMA because she felt "nothing was being done for her pain." However, she did received doses of apap and morphine. She does acknowledge that leaving AMA yesterday was a mistake. She was not able to go to pharmacy today and so has not take her prescribed oral ABX today. On arrival the patient is uncomfortable appearing in NAD, AFVSS. Patient appears clinically dry. She has mild bilateral CVA and lower abdominal ttp. No guarding or rebound. WBC wnl. H/H and platelets approximate to inpatient values but slightly down from initial ED presentation. Chemistry without acidosis. Phosphorus 1.8 and Magnesium 1.9 with repletion provided. These have fluctuated since her initial ED presentation. LFTs unremarkable. UA with LE 2+, WBC>30 with no bacteria. Epitheleal cells >30. Renal US negative for hydronephrosis or evidence of abscess. Blood cx drawn. CTX ordered. Case was discussed with KAMILLE Marin PAC, [facility] team will evaluate the patient for admission. Impression & Plan Pyelonephritis, Hypophosphatemia, Hypomagnesemia Discharge Plan Visit Data *Final* Discharge Date/Time: 08/20/18 15:36 Chief Complaint: Abdominal Pain Stated Complaint: RT SIDED ABD/FLANK PAIN,SWELLING,CANT URINATE,FEVE ED Provider: Alton Feliz Discharge Problem: Pyelonephritis, Hypophosphatemia, Hypomagnesemia Patient Disposition: Admitted As Inpatient Discharge Instructions Interventions: ED Discharge Assessment Last Done: 08/20/18 15:36 The scribe's documentation has been prepared under my direction and personally reviewed by me in its entirety. I confirm that the note above accurately reflects all work, treatment, procedures, and medical decision making performed by me.
--- NOTE | 2018-08-20 14:30 | History & Physical Report ---
Date of Service August 20, 2018 Assessment & Plan (1) Pyelonephritis of right kidney: Ms. Soto is a 28-year-old female with a history of recurrent UTIs and iron deficiency anemia who presented to the emergency department due to a 5-6 day history of nausea, vomiting, right-sided flank pain, fever and chills. , Patient is a readmission, as she was previously admitted on August 18 for the same symptoms, however signed out AMA the following night. ED Course: 2 g IV Rocephin, 8 mg IV morphine, 4 mg IV Zofran, 2 L normal saline bolus, 1 g IV acetaminophen, 9 mmol potassium phosphate, 1 g IV magnesium sulfate Pyelonephritis -Admit to med/surg -CT abdomen and pelvis on 08/18 showed cystitis with upper urinary tract involvement of infection and suspected developing lobar nephronia, focal pyelonephritis -Interestingly, patient has been afebrile in the emergency department, with normal white cell count -Given atypical imaging findings, and labs and urine not quite fitting with pyelonephritis, will consult urology -Unfortunately, urine specimen on first ED visit was obtained after the administration of antibiotics. UA was positive for nitrites and leukocyte esterase, however preliminary culture has been negative -Renal ultrasound ordered today to reassess -Blood cultures drawn today and pending, unfortunately no prior blood cultures -Continue IV Rocephin 1g q24h -Pain regimen - prn acetaminophen and IV Toradol. 0.5 mg of IV Dilaudid every 4 hours as needed for severe pain -IV Zofran ordered prn for nausea -LR ordered at 125 mls/hr x2 bags Recurrent UTIs -Provided education on importance of completing antibiotic regimen when prescribed -Recurrent UTIs likely secondary to not completing course of antibiotics Thrombocytopenia -Platelets on admission 80, patient unaware of history of thrombocytopenia -Borderline splenomegaly noticed on CT abdomen and pelvis -No signs or symptoms of bleeding -Interestingly, patient has anemia, thrombocytopenia, and despite suspected pyelonephritis, normal white cell count - may have a degree of myelosuppression -Outpatient follow-up Hypophosphatemia -Phosphorus level low at 1.8, repleted in the ED -Recheck tomorrow Anemia -Patient has a history of the same, previously used to take iron while -Hemoglobin 10.6 on admission -Iron studies ordered Tobacco abuse -Nicotine patch ordered -Smoking cessation counseling CODE STATUS: Full DVT prophylaxis: Patient ambulatory Disposition: Admit to med/surg (2) Thrombocytopenia: (3) Low phosphate levels: (4) Anemia: (5) Tobacco abuse: History of Present Illness Chief Complaint: Flank Pain, Nausea, Vomiting, Fever Primary Care Provider: NO PCP Ms. Soto is a 28-year-old female with a history of recurrent UTIs and iron deficiency anemia who presented to the emergency department due to a 5-6 day history of nausea, vomiting, right-sided flank pain and fever and chills. She had previously presented to the emergency department for the same symptoms on August 18, 2 days ago, and was admitted for pyelonephritis. She left AMA the following night, as she felt that she was "not improving, and could carry out treatment by herself at home." She states that she returned today because she had recurrent fever, chills, and noted worsening pain, spreading to the left side of her back. With regards to her pain. She states that it is over her right flank, it is 8 out of 10 in severity, and is sharp, with spasms. She states that she has a history of kidney stones, however this pain feels differe nt. With regards to her kidney stones, she was able to pass them by herself, never required any intervention. With her pain, she has felt nauseous and has vomited. The last time she vomited was 2 days ago. Her appetite has been decreased, as she has felt nauseous. She denies urinary symptoms, such as dysuria, frequency, urgency, however she states that her urine has been quite dark of late. She is unable to comment on any blood in her urine as she is currently on her menstrual cycle. She does endorse feeling lightheaded with standing. With regards to her history of frequent UTIs, she states that she has one UTI a month, and this has been the case for several years. She recently moved to [place], but previously used to see her [employer] for the recurrent UTIs. She states that her last one was approximately 3 weeks ago. She states that there was one time that she was called regarding her urine culture because the bacteria was resistant to the antibiotic that she was on, and told to switch to another antibiotic, however all other urine cultures have grown pansensitive organisms. She states that when she is diagnosed with the UTI, she generally only takes antibiotics for the first couple of days, until she starts to feel better. She never finishes a course of antibiotics, as she does not feel that she needs to. She has been admitted for a urinary tract infection once before, during one of her pregnancies. Past medical history: Recurrent UTIs, iron deficiency anemia Past surgical history: Cholecystectomy, C-sections x3, tubal ligation Social history: Lives at home with her fianc and 3 children. Current smoker, 1 pack a day x15 years. Denies use of alcohol or recreational drugs. Allergies Allergy/AdvReac Type Severity Reaction Status Date / Time ciprofloxacin Allergy Intermediate Hives Verified 08/20/18 13:31 Home Medications Home Medications Medication Instructions Recorded Confirmed Type cefixime 400 mg PO DAILY 14 Days #14 cap 08/19/18 08/20/18 Rx Past Med/Surg History Surgical History History of cholecystectomy Social History Preferred Language: [place]an Communication Ability: Effective Technology Training Associate Required: No Beliefs That Will Affect Care: None Current Living Situation: Family Current Living Situation Comment: mecca(boyfriend) and 2 children. Other Information That Helps Us Care for You: No Feels Safe at Home: Yes Safety Concerns: Feels Safe At This Time Smoking Status: Current every day smoker Tobacco Type: cigarettes Cigarettes Per Day: 15 Do You Dip or Chew Tobacco: No Second Hand Exposure: Yes Tobacco Cessation Education Requested by Patient: No Hx Alcohol Use: No Hx Substance Use: No Review of Systems Constitutional: + fever and + chills Respiratory: no cough, no dyspnea and no wheezing Cardiovascular: no chest pain, no syncope, no edema and no calf pain Gastrointestinal: + abdominal pain, + nausea and + vomiting; no change in bowel habits Genitourinary: + decreased urination and + flank pain; no dysuria, no urinary frequency and no urinary hesitancy Physical Exam Constitutional: well developed, well nourished, + obese and cooperative crying whilst IV is being placed ENMT: external ear and nose normal, oropharynx normal dry mucous membranes Respiratory: normal respiratory effort, lungs clear to auscultation Cardiovascular: RRR, no murmur, no edema Gastrointestinal (Abdomen): Inspection/Auscultation: abdomen normal to inspection Percussion/Palpation: + abdomen tender (over suprapubic area) and abdomen soft; no guarding and abdomen not rigid +right sided flank tenderness, minimally tender on left side Skin: no rashes, warm and dry Neurologic: awake; no focal motor deficits 5/5 strength in UE and LE Results & Data Vital Signs (Past 12 Hours) Vital Signs Temp Pulse Pulse Resp BP BP Pulse Ox 08/20/18 14:22 105 H 117/69 95 08/20/18 13:42 91 H 24 142/87 H 97 08/20/18 12:10 98 H 20 97 08/20/18 11:53 37.4 C 107 H 22 135/79 100 Supervising Physician Co-Signing Physician Notes I personally examined pt and verified all skaggs points w Dr Ballesteros. pain bad, tried to take care of self at home but failed. came back vitals noted fatigued appearing flank pain no guarding no rebound. no ridigity. nontoxic appearing. breathing unlabored no accessory muscles good effort labs/CT from prior reviewed, US results from ER noted pyelonephritis -consult urology - ?focal area, also ?based on her history multiple recurrent UTIs ??anatomic anomaly -abx as ordered -pain control, supportive care -?cultures negative because abx started prior in ER on prior visit - although lack of WBC does -await urology input on situation mutliple low cell lines -?lack of leukocytosis due to ?baseline pancytopenia not reflected in WBC due to rise in the face of infection? -check iron studies -low threshold for hematology consult - or if not needed inpt then would definitely have her see hematology after discharge. otherwise as above PG Care Time/CCT Total # of Minutes Spent Total Time Spent with Patient: Total time spent is greater than 50% in coordination of care (as documented) at patient's floor/unit and/or counseling patient: Resident Activity Tracking Resident Involvement: Resident Care Provided Care Provided: Adult Hospital Medicine
--- NOTE | 2018-08-20 15:06 | Ultrasound Report ---
RENAL ULTRASOUND CLINICAL HISTORY: Bilateral flank pain. Pyelonephritis. COMPARISON STUDY: CT of the abdomen and pelvis August 18, 2018. TECHNIQUE: Sonography of the kidneys and the urinary bladder was performed. FINDINGS: The right kidney measures 12.9 x 5.7 x 5 cm and the left measures 12.5 x 6.6 x 5.5 cm. Ther e is no hydronephrosis. Sensitivity for detection of pyelonephritis is diminished given sonographic t echnique however there is no renal abscess. No calculi are identified by sonography. Bladder is unrem arkable. IMPRESSION: 1. No hydronephrosis or renal abscess. 2. Right-sided pyelonephritis shown on CT of August 18, 2018 not clearly evident on this exam likely du e to sonographic technique. Electronically signed by: Danie Galeano M.D. 08/20/2018 3:04 PM
[2018-08-20] MEDS: MAGNESIUM SULFATE / D5W 1 GM/100 ML BAG IV SCH ×2 (15:12→16:37)
[2018-08-20] MEDS ORDERED: ACETAMINOPHEN 325 MG TAB PO PRN (15:48)
[2018-08-20] MEDS ORDERED: ONDANSETRON INJ 2 MG/ML 2 ML VIAL IV PRN (15:48)
[2018-08-20] MEDS: LACTATED RINGER'S 1,000 ML IV SCH (16:37)
[2018-08-20] MEDS: KETOROLAC TROMETHAMINE 15 MG/ML VIAL IV PRN (16:42)
[2018-08-20] MEDS: NICOTINE 21 MG/24 HR TDSY TD SCH (17:41)
[2018-08-20] MEDS: HYDROmorphone INJ 0.5 MG/0.5 ML SYR IV PRN (20:23)
[2018-08-21] MEDS: KETOROLAC TROMETHAMINE 15 MG/ML VIAL IV PRN ×3 (00:15→19:40)
[2018-08-21] MEDS: LACTATED RINGER'S 1,000 ML IV SCH (00:15)
[2018-08-21] MEDS: HYDROmorphone INJ 0.5 MG/0.5 ML SYR IV PRN ×2 (06:02→12:24)
[2018-08-21 06:08] LABS: Hematocrit (blood only) 32.3 % (37-47); Hemoglobin 10.9 g/dL (12.0-16.0); Mean Corpuscular Hgb Conc 33.7 g/dL (32-36); Mean Corpuscular Volume 85.9 fL (80-100); RDW Coefficient of Variation 13.8 % (11.5-14.5); RDW Standard Deviation 43.5 fL (36.4-46.3); Red Blood Count 3.76 M/uL (4.2-5.4); White Blood Count 3.35 K/uL (4.8-10.8)
[2018-08-21 06:26] LABS: Mean Platelet Volume 11.8 fL (7.4-10.4); Platelet Count 70 K/uL (130-400)
[2018-08-21 06:40] LABS: Basophils # (auto) 0.01 K/uL (0-0.2); Basophils % (auto) 0.3 %; Eosinophils # (auto) 0.05 K/uL (0-0.5); Eosinophils % (auto) 1.5 %; Immature Granulocytes # (auto) 0.01 K/uL (0.00-0.02); Immature Granulocytes % (auto) 0.3 %; Lymphocytes # (auto) 0.66 K/uL (1.2-3.4); Lymphocytes % (auto) 19.7 %; Monocytes # (auto) 0.22 K/uL (0.11-0.59); Monocytes % (auto) 6.6 %; Neutrophils % (auto) 71.6 %
[2018-08-21 06:53] LABS: BUN Creatinine Ratio 5.2 (10-20); Calcium 7.5 mg/dl (8.5-10.1); Creatinine Clr Calc Pharmacy 151.8 ml/min; Est GFR (Non-African American) 123.4; Potassium 3.9 mmol/L (3.5-5.1)
[2018-08-21 07:11] LABS: Phosphorus 3.1 mg/dl (2.5-4.9)
[2018-08-21] MEDS: NICOTINE 21 MG/24 HR TDSY TD SCH (08:06)
--- NOTE | 2018-08-21 11:38 | Family Medicine Progress Note ---
Date of Service August 21, 2018 Assessment & Plan (1) Pyelonephritis of right kidney: Ms. Soto is a 28-year-old female with a history of recurrent UTIs and iron deficiency anemia who presented to the emergency department due to a 5-6 day history of nausea, vomiting, right-sided flank pain, fever and chills. , Patient is a readmission, as she was previously admitted on August 18 for the same symptoms, however signed out AMA the following night. ED Course: 2 g IV Rocephin, 8 mg IV morphine, 4 mg IV Zofran, 2 L normal saline bolus, 1 g IV acetaminophen, 9 mmol potassium phosphate, 1 g IV magnesium sulfate Pyelonephritis -Admit to med/surg -CT abdomen and pelvis on 08/18 showed cystitis with upper urinary tract involvement of infection and suspected developing lobar nephronia, focal pyelonephritis -Interestingly, patient has been afebrile in the emergency department, with no leukocytosis; urine culture currently NGTD -Urology consulted and recommended 24 more hours of IV abx; they were okay with Cefixime for 2 weeks; also recommended Methenamine 1gm qHS after antibiotic course is complete -Unfortunately, urine specimen on first ED visit was obtained after the administration of antibiotics. UA was dirty -Blood cultures NGTD -Continue IV Rocephin 1g q24h -Pain regimen - prn acetaminophen and IV Toradol. 0.5 mg of IV Dilaudid every 4 hours as needed for severe pain -IV Zofran ordered prn for nausea Recurrent UTIs -Provided education on importance of completing antibiotic regimen when prescribed -Recurrent UTIs likely secondary to not completing course of antibiotics Thrombocytopenia -Platelets on admission 80, patient unaware of history of thrombocytopenia -Borderline splenomegaly noticed on CT abdomen and pelvis, possible sequestration -No signs or symptoms of bleeding -Interestingly, patient has anemia, thrombocytopenia, and despite suspected pyelonephritis, normal white cell count - may have a degree of myelosuppression -Outpatient follow-up Hypophosphatemia -Phosphorus level low at 1.8, repleted in the ED -3.1 WNL 08/21 Anemia -Patient has a history of the same, previously used to take iron while -Hemoglobin 10.6 on admission -Iron studies ordered showing anemia of chronic inflammation Tobacco abuse -Nicotine patch ordered -Smoking cessation counseling CODE STATUS: Full DVT prophylaxis: Patient ambulatory Disposition: Admit to med/surg (2) Thrombocytopenia: (3) Low phosphate levels: (4) Anemia: (5) Tobacco abuse: Supervising Physician Co-Signing Physician Notes I personally examined pt and verified all skaggs points w Dr. Amato. Her pain has improved. But it is still present. Vital signs also improved. pyelonephritis -consult urology - ?focal area, also ?based on her history multiple recurrent UTIs ??anatomic anomaly -abx as ordered -pain control, supportive care Pancytopenia: Will likely have patient followup with PCP in 1-2 weeks and have her repeat CBC otherwise as above Subjective Notes improvement with pain this morning, no nausea, no vomiting, no diarrhea. Had a BM overnight. No fevers or chills. Physical Exam Constitutional: WD/WN, vitals as above comfortable Eyes: EOM intact bilaterally Neck: normal visual inspection and trachea midline Respiratory: no respiratory distress, no labored breathing and does not use accessory muscles Auscultation: no crackles, no rales and no rhonchi Cardiovascular: RRR, no murmur, no edema Gastrointestinal (Abdomen): Inspection/Auscultation: normal bowel sounds Percussion/Palpation: abdomen soft; abdomen nontender, no guarding and abdomen not rigid Musculoskeletal: Head/Neck/Chest: normocephalic and head atraumatic Skin: no rashes, warm and dry Neurologic: moves all extremities and awake Psychiatric: A+Ox3, euthymic affect Results & Data Vital Signs (Past 12 Hours) Vital Signs Temp Pulse Resp BP Pulse Ox 08/21/18 08:31 36.9 C 64 19 129/80 94 Laboratory Results Laboratory Results - last 24 hr 08/20/18 08/20/18 08/20/18 12:20 12:20 12:20 WBC RBC Hgb Hct MCV MCH MCHC RDW Std Deviation RDW Coeff of Jose Plt Count MPV Immature Gran % (Auto) Neut % (Auto) Lymph % (Auto) [place] % (Auto) Eos % (Auto) Baso % (Auto) Immature Gran # (Auto) Neut # (Auto) Lymph # (Auto) [place] # (Auto) Eos # (Auto) Baso # (Auto) PT 10.2 INR 1.0 APTT 29.5 PTT Ratio 1.1 VBG pH VBG pCO2 VBG pO2 VBG HCO3 VBG O2 Saturation VBG Base Excess Barometric Pressure Sodium 137 Potassium 3.5 Chloride 108 H Carbon Dioxide 23 Anion Gap 7.0 BUN 6 L Creatinine 0.64 Est Cr Clr Drug Dosing 140.2 Est GFR ( Amer) 140.7 Est GFR (Non-Af Amer) 121.4 BUN/Creatinine Ratio 9.1 L Glucose 82 Lactate Calcium 8.0 L Phosphorus 1.8 L D Magnesium 1.9 Iron TIBC Transferrin Ferritin Total Bilirubin 0.4 D Direct Bilirubin 0.2 D AST 16 ALT 18 Alkaline Phosphatase 86 Total Protein 5.8 L Albumin 2.5 L Globulin 3.3 Albumin/Globulin Ratio 0.7 L HCG, Qual Negative Urine Color Urine Appearance Urine pH Ur Specific [place] Urine Protein Urine Glucose (UA) Urine Ketones Urine Blood Urine Nitrite Urine Bilirubin Urine Urobilinogen Ur Leukocyte Esterase Urine WBC (Auto) Urine RBC (Auto) U Hyaline Cast (Auto) U Epithel Cells (Auto) Urine Bacteria (Auto) Ur Renal Epithelial Cell 08/20/18 08/20/18 08/20/18 12:22 12:48 12:48 WBC 5.80 RBC 3.65 L Hgb 10.6 L Hct 31.5 L MCV 86.3 MCH 29.0 MCHC 33.7 RDW Std Deviation 43.1 RDW Coeff of Jose 13.4 Plt Count 80 L MPV 12.2 H Immature Gran % (Auto) 0.2 Neut % (Auto) 76.5 Lymph % (Auto) 16.4 [place] % (Auto) 6.4 Eos % (Auto) 0.3 Baso % (Auto) 0.2 Immature Gran # (Auto) 0.01 Neut # (Auto) 4.44 Lymph # (Auto) 0.95 L [place] # (Auto) 0.37 Eos # (Auto) 0.02 Baso # (Auto) 0.01 PT INR APTT PTT Ratio VBG pH VBG pCO2 VBG pO2 VBG HCO3 VBG O2 Saturation VBG Base Excess Barometric Pressure Sodium Potassium Chloride Carbon Dioxide Anion Gap BUN Creatinine Est Cr Clr Drug Dosing Est GFR ( Amer) Est GFR (Non-Af Amer) BUN/Creatinine Ratio Glucose Lactate 1.0 Calcium Phosphorus Magnesium Iron TIBC Transferrin Ferritin Total Bilirubin Direct Bilirubin AST ALT Alkaline Phosphatase Total Protein Albumin Globulin Albumin/Globulin Ratio HCG, Qual Urine Color Dark Yellow Urine Appearance Clear Urine pH 7.5 Ur Specific [place] 1.017 Urine Protein Negative Urine Glucose (UA) Negative Urine Ketones Negative Urine Blood 1+ H Urine Nitrite Negative Urine Bilirubin Negative Urine Urobilinogen Positive H Ur Leukocyte Esterase 2+ H Urine WBC (Auto) >30 H Urine RBC (Auto) 5-10 H U Hyaline Cast (Auto) 10-30 H U Epithel Cells (Auto) >30 H Urine Bacteria (Auto) Negative Ur Renal Epithelial Cell 0-5 08/20/18 08/21/18 08/21/18 12:48 05:52 05:52 WBC 3.35 L RBC 3.76 L Hgb 10.9 L Hct 32.3 L MCV 85.9 MCH 29.0 MCHC 33.7 RDW Std Deviation 43.5 RDW Coeff of Jose 13.8 Plt Count 70 L MPV 11.8 H Immature Gran % (Auto) 0.3 Neut % (Auto) 71.6 Lymph % (Auto) 19.7 [place] % (Auto) 6.6 Eos % (Auto) 1.5 Baso % (Auto) 0.3 Immature Gran # (Auto) 0.01 Neut # (Auto) 2.40 Lymph # (Auto) 0.66 L [place] # (Auto) 0.22 Eos # (Auto) 0.05 Baso # (Auto) 0.01 PT INR APTT PTT Ratio VBG pH 7.48 H VBG pCO2 29 L VBG pO2 29 VBG HCO3 21 VBG O2 Saturation 66.9 VBG Base Excess -1.7 Barometric Pressure 728.5 Sodium 140 Potassium 3.9 Chloride 110 H Carbon Dioxide 25 Anion Gap 5.0 BUN 3 L Creatinine 0.61 Est Cr Clr Drug Dosing 151.8 Est GFR ( Amer) 143.0 Est GFR (Non-Af Amer) 123.4 BUN/Creatinine Ratio 5.2 L Glucose 85 Lactate Calcium 7.5 L Phosphorus 3.1 D Magnesium Iron 21 L TIBC 193 L Transferrin 142 L Ferritin 79.0 Total Bilirubin Direct Bilirubin AST ALT Alkaline Phosphatase Total Protein Albumin Globulin Albumin/Globulin Ratio HCG, Qual Urine Color Urine Appearance Urine pH Ur Specific [place] Urine Protein Urine Glucose (UA) Urine Ketones Urine Blood Urine Nitrite Urine Bilirubin Urine Urobilinogen Ur Leukocyte Esterase Urine WBC (Auto) Urine RBC (Auto) U Hyaline Cast (Auto) U Epithel Cells (Auto) Urine Bacteria (Auto) Ur Renal Epithelial Cell Medications Administered Hydromorphone HCl (Dilaudid) 0.5 mg IV Q4H PRN PRN Reason: Pain Stop: 09/03/18 15:47 Last Admin: 08/21/18 12:24 Dose: 0.5 mg Documented by: [id number] Admin: 08/21/18 06:02 Dose: 0.5 mg Documented by: [id number] Admin: 08/20/18 20:23 Dose: 0.5 mg Documented by: [id number] Ketorolac Tromethamine (Toradol) 15 mg IV Q6H PRN PRN Reason: Pain Stop: 08/25/18 15:47 Last Admin: 08/21/18 08:13 Dose: 15 mg Documented by: [id number] Admin: 08/21/18 00:15 Dose: 15 mg Documented by: [id number] Admin: 08/20/18 16:42 Dose: 15 mg Documented by: [id number] Miscellaneous (Remove Nicoderm Patch) 1 ea N/A HS [facility] Stop: 09/19/18 20:59 Last Admin: 08/20/18 20:23 Dose: Not Given Documented by: [id number] Nicotine (Nicoderm Cq) 21 mg TD QAM [facility] Stop: 09/19/18 15:47 Last Admin: 08/21/18 08:06 Dose: 21 mg Documented by: [id number] Admin: 08/20/18 17:41 Dose: Not Given Documented by: [id number] Ondansetron HCl (Zofran) 4 mg IV Q6H PRN PRN Reason: Nausea Stop: 09/19/18 15:47 Last Admin: 08/20/18 20:23 Dose: 4 mg Documented by: [id number] PG Care Time/CCT Total # of Minutes Spent Total Time Spent with Patient: Total time spent is greater than 50% in coordination of care (as documented) at patient's floor/unit and/or counseling patient: Resident Activity Tracking Resident Involvement: Resident Care Provided Care Provided: Adult Hospital Medicine
[2018-08-21] MEDS ORDERED: cefTRIAXone SODIUM 2,000 MG in DEXTROSE 5% 50 ML IV SCH (14:00)
--- NOTE | 2018-08-22 08:02 | Discharge Summary ---
Date of Service August 22, 2018 Admission HPI Per Admitting Provider Ms. Soto is a 28-year-old female with a history of recurrent UTIs and iron deficiency anemia who presented to the emergency department due to a 5-6 day history of nausea, vomiting, right-sided flank pain and fever and chills. She had previously presented to the emergency department for the same symptoms on August 18, 2 days ago, and was admitted for pyelonephritis. She left AMA the following night, as she felt that she was "not improving, and could carry out treatment by herself at home." She states that she returned today because she had recurrent fever, chills, and noted worsening pain, spreading to the left side of her back. With regards to her pain. She states that it is over her right flank, it is 8 out of 10 in severity, and is sharp, with spasms. She states that she has a history of kidney stones, however this pain feels different. With regards to her kidney stones, she was able to pass them by herself, never required any intervention. With her pain, she has felt nauseous and has vomited. The last time she vomited was 2 days ago. Her appetite has been decreased, as she has felt nauseous. She denies urinary symptoms, such as dysuria, frequency, urgency, however she states that her urine has been quite dark of late. She is unable to comment on any blood in her urine as she is currently on her menstrual cycle. She does endorse feeling lightheaded with standing. With regards to her history of frequent UTIs, she states that she has one UTI a month, and this has been the case for several years. She recently moved to [place], but previously used to see her [employer] for the recurrent UTIs. She states that her last one was approximately 3 weeks ago. She states that there was one time that she was called regarding her urine culture because the bacteria was resistant to the antibiotic that she was on, and told to switch to another antibiotic, however all other urine cultures have grown pansensitive organisms. She states that when she is diagnosed with the UTI, she generally only takes antibiotics for the first couple of days, until she starts to feel better. She never finishes a course of antibiotics, as she does not feel that she needs to. She has been admitted for a urinary tract infection once before, during one of her pregnancies. Past medical history: Recurrent UTIs, iron deficiency anemia Past surgical history: Cholecystectomy, C-sections x3, tubal ligation Social history: Lives at home with her fianc and 3 children. Current smoker, 1 pack a day x15 years. Denies use of alcohol or recreational drugs. Admission Exam Per Admitting Provider Constitutional: well developed, well nourished, + obese and cooperative crying whilst IV is being placed ENMT: external ear and nose normal, oropharynx normal dry mucous membranes Respiratory: normal respiratory effort, lungs clear to auscultation Cardiovascular: RRR, no murmur, no edema Gastrointestinal (Abdomen): Inspection/Auscultation: abdomen normal to inspection Percussion/Palpation: + abdomen tender (over suprapubic area) and abdomen soft; no guarding and abdomen not rigid +right sided flank tenderness, minimally tender on left side Skin: no rashes, warm and dry Neurologic: awake; no focal motor deficits 5/5 strength in UE and LE Principal Diagnosis Pyelonephritis Discharge Exam Constitutional WD/WN, vitals as above comfortable sleeping soundly this morning with boyfriend in exam bed Eyes EOM intact bilaterally Neck normal visual inspection and trachea midline Respiratory no respiratory distress, no labored breathing and does not use accessory muscles Auscultation: no crackles, no rales and no rhonchi Cardiovascular RRR, no murmur, no edema Gastrointestinal (Abdomen) Inspection/Auscultation: normal bowel sounds Percussion/Palpation: abdomen soft; abdomen nontender, no guarding and abdomen not rigid Musculoskeletal Head/Neck/Chest: normocephalic and head atraumatic Skin no rashes, warm and dry Neurologic moves all extremities and awake Psychiatric A+Ox3, euthymic affect Discharge Data Allergies Allergy/AdvReac Type Severity Reaction Status Date / Time ciprofloxacin Allergy Intermediate Hives Verified 08/20/18 13:31 Consultations 08/20/18 13:21 ED Decision to Admit Stat 08/20/18 15:48 Consult Urology Routine Ordered Studies 08/20/18 13:15 US renal/blad retro comp Stat 1. No hydronephrosis or renal abscess. 2. Right-sided pyelonephritis shown on CT of August 18, 2018 not clearly evident on this exam likely due to sonographic technique Hospital Course (1) Pyelonephritis of right kidney: Ms. Soto is a 28-year-old female with a history of recurrent UTIs and iron deficiency anemia who presented to the emergency department due to a 5-6 day history of nausea, vomiting, right-sided flank pain, fever and chills. , Patient is a readmission, as she was previously admitted on August 18 for the same symptoms, however signed out AMA the following night. She was treated with IV Rocephin and provided analgesic pain medication with Tylenol, Dilaudid 0.5mg PRN, and Toradol. Urology was consulted who agreed with 2 week course of Cefixime PO. They also recommended Methenamine 1gm qHS after abx course complete. I provided follow up appointment information for [facility] to establish Primary Care. ED Course: 2 g IV Rocephin, 8 mg IV morphine, 4 mg IV Zofran, 2 L normal saline bolus, 1 g IV acetaminophen, 9 mmol potassium phosphate, 1 g IV magnesium sulfate Pyelonephritis -Pt was admitted to med/surg. Her CT abdomen and pelvis on 08/18 showed cystitis with upper urinary tract involvement of infection and suspected developing lobar nephronia, focal pyelonephritis. Interestingly, patient had been afebrile throughout stay, with no leukocytosis; urine culture negative. She was treated with IV Rocephin. -Urology was consulted on 08/21 and at that time recommended 24 more hours of IV abx; they agreed with Cefixime for 2 weeks; also recommended Methenamine 1gm qHS after antibiotic course is complete -Unfortunately, urine specimen on first ED visit was obtained after the administration of antibiotics. UA was dirty with >30 epithelial cells -Pain regimen was provided which - prn acetaminophen and IV Toradol. 0.5 mg of IV Dilaudid every 4 hours as needed for severe pain (did not require Dilaudid past 20 hours). -Zofran was provided prn for nausea Recurrent UTIs -Provided education on importance of completing antibiotic regimen when prescribed. She endorses that she has prior script of Cefixime from when she left AMA and does not need a new script. -Recurrent UTIs likely secondary to poor compliance Thrombocytopenia -Platelets on admission 80, patient unaware of history of thrombocytopenia -Borderline splenomegaly noticed on CT abdomen and pelvis, possible sequestration -No signs or symptoms of bleeding -Interestingly, patient has anemia, thrombocytopenia, and despite suspected pyelonephritis, normal white cell count - unclear etiology, recommend outpatient follow up labs. Hypophosphatemia -Phosphorus level low at 1.8, repleted in the ED -3.1 WNL 08/21 Anemia -Patient has a history of the same, previously used to take iron while -Hemoglobin 10.6 on admission -Iron studies ordered showing anemia of chronic inflammation Tobacco abuse -Nicotine patch ordered -Smoking cessation counseling CODE STATUS: Full DVT prophylaxis: Patient ambulatory Disposition: Admit to med/surg (2) Thrombocytopenia: (3) Low phosphate levels: (4) Anemia: (5) Tobacco abuse: Total Time Total Time Spent Total Time Spent (In Minutes): 35 Total Time Includes: Examination of the Patient, Discharge Planning, Medication Reconciliation and Communication With Other Providers Discharge Plan Discharge Items Patient Disposition: Home - Self-Care Reason For Visit: PYELONEPHRITIS Discharge Diagnosis: Pyelonephritis Discharge Goals: Decrease discomfort and Therapeutic intervention Activity: Per 'Additional Instructions' section Non-emergency contact: Primary Care Provider Call non-emergency contact if: you have any medication questions and you have a fever Follow-up/Referrals: Abhinav Amato DO [Resident] - (call for next available appointment; can to see first available appointment with any [employer].) PCP,NO [Primary Care Provider] - Diet: Regular Addtl Provider Instructions: As we discussed, you were diagnosed with a kidney infection (pyelonephritis) that required IV antibiotics to treat infection. You will need to continue an oral (pill) antibiotic to finish treatment. We are also concerned that because of your previous history of not taking oral antibiotics that you may not take the full course of antibiotics being prescribed now. By not fully treating this infection you run the risk of permanent kidney damage, spread of bacteria from your kidney into your bloodstream, very serious body-wide illness, and in the worst cases . You have been prescribed an antibiotic called cefixime. Please take this medication once per day for the next 2 weeks. If you have any concerns about side effects or an allergic reaction please either return here for further evaluation. Otherwise, it is very important that you complete the course of antibiotics. If it turns out you develop an antibiotic resistant bacteria will be much more difficult to treat you in the future. You are advised to take [id number] Tylenol as needed for any pain. Once you are finished with the Cefixime antibiotic (in 2 weeks). You will start taking a daily antibiotic before bed. This is called Methenamine 1gm. This is one pill nightly. This medication will be used to prevent Urinary Tract Infections from reoccurring. This was sent electronically to your pharmacy on file. Please call the referrral to schedule an appointment with a Family Medical Provider as soon as possible, for very close follow-up for your kidney infection, ask the planner scheduler for next available appointment with first available resident. You are absolutely welcome to return to the emergency department or to the hospital anytime if you change your mind or if you have any worsening symptom. Prescriptions: New methenamine hippurate 1 gram tablet 1 gm PO .qhs 30 Days Qty: 30 RF: 0 Continued cefixime 400 mg capsule 400 mg PO DAILY 14 Days Qty: 14 RF: 0 Stand-Alone Forms: [facility] Discharge Orders: Discharge Order (Routine); Ordered 08/22/18 Ordered By: Kvgn Badillo Admission Data Admit Date/Time: 08/20/18 14:33 Attending Provider: Kvng Badillo Admit Provider: Lisbet Ballesteros Primary Care Provider: PCP,NO Other Providers: Chilango Peterson ; Rafiq Rodriguez ; Jasvir Reyes ; Pierre Barreto I. ; Clovis Andrade ; Annelise Estevez ; Chris Alegre II ; Valeria Douglas Service: Medical Other Interventions: Discharge Summary Assessment (RN) Last Done: 08/22/18 11:33 DC Date/Time DO NOT enter until pt leaves facility: 08/22/18 12:00 Supervising Physician Co-Signing Physician Notes I personally examined pt and verified all skaggs points w Dr. Amato. Her pain has continued to improve. Vital signs also improved. pyelonephritis -consult urology - ?focal area, also ?based on her history multiple recurrent UTIs ??anatomic anomaly -will discharge on cefixime to complete 14 days of treatment -pain control, supportive care Pancytopenia: Will likely have patient followup with PCP in 1-2 weeks and have her repeat CBC as an outpatient. otherwise as above Resident Activity Tracking Resident Involvement: Resident Care Provided Care Provided: Adult Hospital Medicine
[2018-08-22] MEDS: NICOTINE 21 MG/24 HR TDSY TD SCH (08:42)
== END 2018-08-22 12:00 | disposition home or self-care (01) ==
LOC: ED 11:49 → 4E 11:49 → SUATTDRO 14:33 → 4E 15:36